=== PATIENT | female | born 1995 | race Caucasian/White ===

== ENCOUNTER 2019-06-09 12:40 | Emergency (ER) | payer BC ==
[2019-06-09] MEDS ORDERED: METOCLOPRAMIDE 10 MG/2mL INJ ONE (14:07)
[2019-06-09] MEDS ORDERED: DIPHENHYDRAMINE 50 MG/ML VIAL ONE (14:07)
[2019-06-09] MEDS ORDERED: KETOROLAC 30 MG/ML INJ ONE (14:07)
[2019-06-09] MEDS ORDERED: NA CHLORIDE 0.9% 1,000 ML ONE (14:08)
--- NOTE | 2019-06-09 14:34 | RAD REPORT ---
EXAM DESCRIPTION: CT - Head Brain Wo Cont - 06/09/2019 2:27 pm CLINICAL HISTORY: JON Headache, drowsiness COMPARISON: No comparisons TECHNIQUE: All CT scans are performed using dose optimization technique as appropriate and may inclu de automated exposure control or mA/KV adjustment according to patient size. FINDINGS: No intracranial hemorrhage, hydrocephalus or extra-axial fluid collection.No areas of brai n edema or evidence of midline shift. The paranasal sinuses and mastoids are clear. The calvarium is intact. IMPRESSION: No acute intracranial abnormality.
[2019-06-09 14:35] LABS: Urine Blood NEGATIVE (NEG); Urine Glucose NEGATIVE (NEG); Urine Protein NEGATIVE (NEG); Urine Specific Gravity 1.025 (1.005-1.030); Urine pH 5.5 (5.0-7.0)
--- NOTE | 2019-06-09 20:13 | EDPHYS ---
Physician Documentation [facility] Name: Kylah Ariza Age: 23 yrs Sex: Female : 1995 Arrival Date: 06/09/2019 Time: 12:45 Bed 5 Private MD: ED Physician Moisés Rosenbaum HPI: 06/09 14:50 This 23 yrs old Female presents to ER via Ambulatory with complaints of Flu Symptoms, pm1 Headache. 14:50 The patient complains of pain to the top of head, forehead, right eye, left eye, left pm1 side of the back of head, left occipital area, right side of the back of head and right occipital area. The patient describes the headache as aching. 14:50 Onset: The symptoms/episode began/occurred 3 day(s) ago. Associated signs and symptoms: pm1 Pertinent positives: nausea, Photophobia vomiting, Body aches, Pertinent negatives: neck stiffness, vision changes, vision loss. Severity of symptoms: in the emergency department the pain is actually worse. Headache History: Denies prior headaches. The symptoms are alleviated by nothing. the symptoms are aggravated by lights. The patient has not experienced similar symptoms in the past. Recent diagnosis of PCOS three weeks ago. Taking metformin. 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 - Social history:: Smoking status: Patient uses tobacco products, smokes one-half pack cigarettes per day. - Ebola Screening: : Patient denies travel to an Ebola-affected area in the 21 days before illness onset. ROS: 14:50 Eyes: Negative for injury, pain, redness, and discharge. pm1 14:50 ENT: Negative for injury, pain, and discharge, Neck: Negative for injury, pain, and swelling, Cardiovascular: Negative for chest pain, palpitations, and edema, Respiratory: Negative for shortness of breath, cough, wheezing, and pleuritic chest pain. 14:50 Back: Negative for injury and pain, : Negative for injury, bleeding, discharge, and swelling, MS/Extremity: Negative for injury and deformity, Skin: Negative for injury, rash, and discoloration. 14:50 Constitutional: Positive for body aches, fever, Negative for chills, poor PO intake. 14:50 Abdomen/GI: Positive for nausea and vomiting, Negative for abdominal pain, diarrhea, constipation. 14:50 Neuro: Positive for headache, Negative for numbness, weakness. Exam: 14:50 Constitutional: This is a well developed, well nourished patient who is awake, alert, pm1 and in no acute distress. Head/Face: Normocephalic, atraumatic. Eyes: Pupils equal round and reactive to light, extra-ocular motions intact. Lids and lashes normal. Conjunctiva and sclera are non-icteric and not injected. Cornea within normal limits. Periorbital areas with no swelling, redness, or edema. ENT: Nares patent. No nasal discharge, no septal abnormalities noted. Tympanic membranes are normal and external auditory canals are clear. Oropharynx with no redness, swelling, or masses, exudates, or evidence of obstruction, uvula midline. Mucous membranes moist. Neck: Trachea midline, no thyromegaly or masses palpated, and no cervical lymphadenopathy. Supple, full range of motion without nuchal rigidity, or vertebral point tenderness. No Meningismus. Chest/axilla: Normal chest wall appearance and motion. Nontender with no deformity. No lesions are appreciated. Cardiovascular: Regular rate and rhythm with a normal S1 and S2. No gallops, murmurs, or rubs. Normal PMI, no JVD. No pulse deficits. Respiratory: Lungs have equal breath sounds bilaterally, clear to auscultation and percussion. No rales, rhonchi or wheezes noted. No increased work of breathing, no retractions or nasal flaring. Abdomen/GI: Soft, non-tender, with normal bowel sounds. No distension or tympany. No guarding or rebound. No evidence of tenderness throughout. Back: No spinal tenderness. No costovertebral tenderness. Full range of motion. Skin: Warm, dry with normal turgor. Normal color with no rashes, no lesions, and no evidence of cellulitis. MS/ Extremity: Pulses equal, no cyanosis. Neurovascular intact. Full, normal range of motion. 14:50 Neuro: Orientation: is normal, Cranial nerves: CN II- XII are normal as tested, Motor: is normal, moves all fours, strength is normal, strength is 5/5 in all extremities, Sensation: is normal, no obvious gross deficits, Gait: is steady, at a normal pace, without difficulty. Vital Signs: 12:50 BP 116 / 83; Pulse 82; Resp 16; Temp 98.5; Pulse Ox 98% on R/A; Weight 66.68 kg (R); aj1 Height 5 ft. 1 in. (154.94 cm) (R); Pain 8/10; 12:50 Body Mass Index 27.78 (66.68 kg, 154.94 cm) aj1 MDM: 13:37 Patient medically screened. pm1 15:27 Data reviewed: vital signs. Data interpreted: Pulse oximetry: on room air is 98 %. pm1 Interpretation: normal. Counseling: I had a detailed discussion with the patient and/or guardian regarding: the historical points, exam findings, and any diagnostic results supporting the discharge/admit diagnosis, lab results, radiology results, the need for outpatient follow up, a family practitioner, a neurologist, to return to the emergency department if symptoms worsen or persist or if there are any questions or concerns that arise at home. 06/09 14:04 Order name: Urine Dipstick-Ancillary (obtain specimen); Complete Time: 14:09 pm1 06/09 14:04 Order name: Urine Test (obtain specimen); Complete Time: 14:06 pm1 Administered Medications: 14:13 Drug: TORadol 30 mg Route: IVP; Site: right antecubital; hb 15:13 Follow up: Response: No adverse reaction sv 14:13 Drug: Reglan 10 mg Route: IVP; Site: right antecubital; hb 15:13 Follow up: Response: No adverse reaction sv 14:13 Drug: Benadryl 12.5 mg Route: IVP; Site: right antecubital; hb 15:13 Follow up: Response: No adverse reaction sv 14:14 Drug: NS 0.9% 1000 ml Route: IV; Rate: 1000 ml; Site: right antecubital; hb 15:39 Follow up: Response: No adverse reaction; IV Status: Completed infusion; IV Intake: sv 900ml Disposition: 06/10 07:27 Co-signature as Attending Physician, Moisés Rosenbaum MD I agree with the assessment and kdr plan of care. Disposition: 06/09/19 15:29 Discharged to Home. Impression: Headache. - Condition is Stable. - Discharge Instructions: General Headache Without Cause. - Prescriptions for Fiorinal 50- 325-40 mg Oral Capsule - take 1 capsule by ORAL route every 4 hours As needed - not to exceed 6 capsules per day; 20 capsule. - Medication Reconciliation Form, Thank You Letter, Antibiotic Education, Prescription Opioid Use form. - Follow up: Emergency Department; When: As needed; Reason: Worsening of condition. Follow up: Private Physician; When: 2 - 3 days; Reason: Recheck today's complaints, Continuance of care, Re-evaluation by your physician. - Problem is new. - Symptoms have improved. Signatures: Yanira Lambert RN RN aj1 Gayatri Goode RN RN sv Moisés Rosenbaum MD MD [facility] Lucas Waters NP MANAGER TRANSIT pm1 Laura López RN RN Corrections: (The following items were deleted from the chart) 06/09 15:38 15:29 06/09/2019 15:29 Discharged to Home. Impression: Headache. Condition is Stable. sv Forms are Medication Reconciliation Form, Thank You Letter, Antibiotic Education, Prescription Opioid Use. Follow up: Emergency Department; When: As needed; Reason: Worsening of condition. Follow up: Private Physician; When: 2 - 3 days; Reason: Recheck today's complaints, Continuance of care, Re-evaluation by your physician. Problem is new. Symptoms have improved. pm1
--- NOTE | 2019-06-09 20:15 | ER ---
Nurse's Notes [facility] Name: Kylah Ariza Age: 23 yrs Sex: Female : 1995 Arrival Date: 06/09/2019 Time: 12:45 Bed 5 Private MD: Diagnosis: Headache Presentation: 06/09 12:47 Presenting complaint: Patient states: "I'm nauseous. I've thrown up a few times. I have aj1 a migraine from the top of my head to the back of my neck" Reports that she had a fever of 100.0 at home. States that she has had this headache since Thursday. Transition of care: patient was not received from another setting of care. Onset of symptoms was May 2019. Risk Assessment: Do you want to hurt yourself or someone else? Patient reports no desire to harm self or others. Initial Sepsis Screen: Does the patient meet any 2 criteria? No. Patient's initial sepsis screen is negative. Does the patient have a suspected source of infection? No. Patient's initial sepsis screen is negative. Care prior to arrival: None. 12:47 Method Of Arrival: Ambulatory [facility] 12:47 Acuity: NIDA 4 aj1 Triage Assessment: 12:50 Headache History: The patient has had previous headaches and this one is different than aj1 previous episodes. General: Appears in no apparent distress. uncomfortable, Behavior is calm, cooperative, appropriate for age. Pain: Complains of pain in top of head Pain radiates to neck Pain currently is 8 out of 10 on a pain scale. Quality of pain is described as throbbing, Pain began 4 days ago Also complains of nausea. Neuro: Level of Consciousness is awake, alert, obeys commands. Neuro: Gait is steady, Speech is normal, Facial symmetry appears normal. Cardiovascular: Patient's skin is warm and dry. Respiratory: Airway is patent Respiratory effort is even, unlabored, Respiratory pattern is regular, symmetrical. 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 - Social history:: Smoking status: Patient uses tobacco products, smokes one-half pack cigarettes per day. - Ebola Screening: : Patient denies travel to an Ebola-affected area in the 21 days before illness onset. Screenin:58 Abuse screen: Denies threats or abuse. Denies injuries from another. Nutritional sv screening: No deficits noted. Tuberculosis screening: No symptoms or risk factors identified. Fall Risk None identified. Assessment: 14:05 General: Appears in no apparent distress. uncomfortable, Behavior is calm, cooperative. hb Pain: Pain currently is 8 out of 10 on a pain scale. Neuro: Level of Consciousness is awake, alert, obeys commands, Oriented to person, place, time, situation, Reports headache. Cardiovascular: Capillary refill < 3 seconds Patient's skin is warm and dry. Respiratory: Airway is patent Respiratory effort is even, unlabored, Respiratory pattern is regular, symmetrical. GI: No signs and/or symptoms were reported involving the gastrointestinal system. : No signs and/or symptoms were reported regarding the genitourinary system. EENT: No signs and/or symptoms were reported regarding the EENT system. Derm: Skin is intact, is healthy with good turgor. Musculoskeletal: No signs and/or symptoms reported regarding the musculoskeletal system. 15:18 Reassessment: Patient appears in no apparent distress at this time. Patient and/or sv family updated on plan of care and expected duration. Pain level reassessed. Patient is alert, oriented x 3, equal unlabored respirations, skin warm/dry/pink. Patient states feeling better. Patient states symptoms have improved. 15:38 Reassessment: Patient appears in no apparent distress at this time. Patient and/or sv family updated on plan of care and expected duration. Pain level reassessed. Patient is alert, oriented x 3, equal unlabored respirations, skin warm/dry/pink. Patient states feeling better. Patient states symptoms have improved. Vital Signs: 12:50 BP 116 / 83; Pulse 82; Resp 16; Temp 98.5; Pulse Ox 98% on R/A; Weight 66.68 kg (R); aj1 Height 5 ft. 1 in. (154.94 cm) (R); Pain 8/10; 12:50 Body Mass Index 27.78 (66.68 kg, 154.94 cm) aj1 ED Course: 12:45 Patient arrived in ED. mr 12:50 Triage completed. aj1 13:34 Lucas Waters [facility]. pm1 13:34 Moisés Rosenbaum MD is Attending Physician. pm1 13:58 Gayatri Goode RN is Primary Nurse. sv 13:58 Flu and/or RSV swab sent to lab. sv 13:58 Arm band placed on. sv 13:59 Nurse Practitioner and/or Physician Cargo And Ramp Services Manager to see patient. sv 13:59 Patient has correct armband on for positive identification. Bed in low position. Adult sv w/ patient. Door closed. Head of bed elevated. 14:10 Inserted saline lock: 20 gauge in right antecubital area, using aseptic technique. sv Flushed right antecubital with 5 ml normal saline. 14:[address] Scan. sv 15:38 No provider procedures requiring assistance completed. IV discontinued, intact, sv bleeding controlled, No redness/swelling at site. Pressure dressing applied. Administered Medications: 14:13 Drug: TORadol 30 mg Route: IVP; Site: right antecubital; hb 15:13 Follow up: Response: No adverse reaction sv 14:13 Drug: Reglan 10 mg Route: IVP; Site: right antecubital; hb 15:13 Follow up: Response: No adverse reaction sv 14:13 Drug: Benadryl 12.5 mg Route: IVP; Site: right antecubital; hb 15:13 Follow up: Response: No adverse reaction sv 14:14 Drug: NS 0.9% 1000 ml Route: IV; Rate: 1000 ml; Site: right antecubital; hb 15:39 Follow up: Response: No adverse reaction; IV Status: Completed infusion; IV Intake: sv 900ml Intake: 15:39 IV: 900ml; Total: 900ml. sv Outcome: 15:29 Discharge ordered by . pm1 15:38 Discharged to home ambulatory, with family. sv 15:38 Condition: stable 15:38 Discharge instructions given to patient, Instructed on discharge instructions, follow up and referral plans. medication usage, Demonstrated understanding of instructions, follow-up care, medications, Prescriptions given X 1. 15:38 Patient left the ED. sv Signatures: Yanira Lambert RN RN aj1 Gayatri Goode RN RN sv Shira Henson mr Lucas Waters, WET PROCESS TECHNICIAN WET PROCESS TECHNICIAN pm1 López, Laura, RN RN hb Corrections: (The following items were deleted from the chart) 13:59 13:59 Door closed. Head of bed lowered. sv sv
== END 2019-06-09 15:38 | disposition home or self-care (01) ==
LOC: ER 12:40
DX: R51 Headache (principal)
CPT/HCPCS: 96361; 81025; 81003; 87804 ×2; 70450; 96375; 96374; 99284; J2765; J7030

== ENCOUNTER 2023-03-15 16:52 | Emergency (ER) | payer SELFPAY ==
--- OUTSIDE RECORDS SUMMARY | 2023-03-15 16:55 | XMS REPORT | Continuity of Care Document ---
:1995 Author Organization [facility] t Address [address] [place] [address] [address] [place] [address] Care Team Providers Name Role Phone ELISABETHDREADYFN Attending Clinician Unavailable MARY RIVERS Attending Clinician Unavailable G_Pappas Attending Clinician Unavailable ERJACLYNONAmy Attending Clinician Unavailable Kori_Sharon Attending Clinician Unavailable Toby Jordan Attending Clinician [phone] JAGDEEP ANAND Attending Clinician Unavailable Yesica Preciado DO Attending Clinician YESICA PRECIADO Attending Clinician Unavailable Doctor Unassigned, [place] Attending Clinician Unavailable Yusef Pierre MD Attending Clinician 1, [facility] Attending Clinician Unavailable FRANCY SELF Attending Clinician Unavailable KEV LONDONO Attending Clinician Unavailable JOSH VARGAS Attending Clinician Unavailable G_Pappas Admitting Clinician Unavailable ERICKSONAmy Admitting Clinician Unavailable Kori_Sharon Admitting Clinician Unavailable JAGDEEP ANAND Admitting Clinician Unavailable Payers Payer Name Policy Type Policy Number Effective Date Expiration Date Paige AGEE (EPO) [id number] 2021 00:00:00 [place] [id number] 2020 00:00:00 [place] [id number] 2016 00:00:00 [place] Problems Condition Condition Condition Status Onset Resolution Last Treating Co mments Source Name Details Category Date Date Treatment Clinician Date History of History of Problem Active S weeny SARS-CoV-2 SARS-CoV-2 06-21 Co mmuni 00:00: ty 00 [facility] Polycystic Polycystic Problem Active S weeny ovary Ovary 06-20 Communi syndrome Syndrome 00:00: ty 00 [facility] Amenorrhea Amenorrhea Problem Active M atagor 5-29 da 00:00: Medical 00 Group Polycystic Polycystic Problem Active M [facility] ovary Ovary 03-09 da syndrome Syndrome 00:00: Medica l 00 Group Female Female Disease Active Overview: [facility] s infertilit infertilit -05/30/19 - ity of y y 00:00: FSH 5.95, [place] associated associated 00 LH 13.3, Medical with with DHEA-S Branch anovulatio anovulatio 2,564, n n prolactin 7.2, TSH 3.27, free testoster one 10, 17 hydroxypr ogesteron e normal, AMH - 27.155 PCOS PCOS Disease Active Overview: [facility] s (polycysti (polycysti -06/01/19 - ity of c ovarian c ovarian 00:00: A pelvic [place] syndrome) syndrome) 00 US Medi marlo revealed Branch a uterus measuring 7.7 x 4.3 x 5.4 cm. The endometri al stripe was 5 mm.The right ovary measured 6.0 x 3.2 x 3.1 cm and the left ovary measures 5.4x 2.8 x 2.8 cm. Both ovaries have a volume of more than 10 cc with each containin g numerous subcentim eter follicles . Bilateral ly enlarged ovaries with numerous follicles raise the possibili ty of polycysti c ovarian syndrome. 8/19/19 - 17 hydroxypr ogesteron e normal. Absence of Absence of Disease Active U nivers menstruati menstruati 05-27 it y of on on 00:00: [address] PCOS PCOS Disease Active Overview: Univer s (polycysti (polycysti 05-2706/01/19 - ity of c ovarian c ovarian 00:00: A pelvic [place] syndrome) syndrome) 00 US Medi marlo revealed Branch a uterus measuring 7.7 x 4.3 x 5.4 cm. The endometri al stripe was 5 mm.The right ovary measured 6.0 x 3.2 x 3.1 cm and the left ovary measures 5.4x 2.8 x 2.8 cm. Both ovaries have a volume of more than 10 cc with each containin g numerous subcentim eter follicles . Bilateral ly enlarged ovaries with numerous follicles raise the possibili ty of polycysti c ovarian syndrome. 05/30/19 hydroxypr ogesteron e normal. 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 00:00: Medical 00 Group Bacterial Bacterial Problem Active [facility] vaginosis Vaginosis da Medical Group Acute Acute Problem Active [place] cystitis Cystitis da Medical Group Oligomenor Oligomenor Problem Active M at[facility] abdirahman abdirahman [facility] Allergies, Adverse Reactions, Alerts Allergy Allergy Status Severity Reaction(s) Onset Inactive Treating Comm ents Source Name Type Date Date Clinician NO KNOWN Drug Active Univers ALLERGIE Class ity of [facility] [place] [facility] Social History Social Habit Start Date Stop Date Quantity Comments Source History of Cigarette Smoker Universi ty of tobacco use [facility] Sex Assigned At Universit y of [facility] Alcohol intake 2019-11-10 2019-11-10 University of 00:00:00 00:00:00 [facility] Smoking Status Start Date Stop Date Source Former Smoker [facility] Current every day smoker 2019-11-10 00:00:00 Uni versity of [facility] Medications Ordered Filled Start Stop Current Ordering Indication Dosage Frequency Signature Comments Components Source Medication Medication Date Date Medication? Clinician (SIG) Name Name HYDROcodone 2020- No 1{tbl} 1 tablet, Univers -acetaminop 11-10 Oral, ity of hen (NORCO 22:45: 21:47 ONCE, 1 Benja as 5) 5-325 mg 00 :00 dose, Bekah Med ical tablet 1 11/10/19 at [facility] h tablet 1645, TRUDI metFORMIN Yes [id number] 500mg Take 1 Univers 500 mg 8-20 tablet by ity of tablet 00:00: mouth 2 [place] [facility] Medical times Branch daily with meals. metFORMIN Yes [id number] 500mg Take 1 Univers 500 mg 8-20 tablet by ity of tablet 00:00: mouth 2 [place] [facility] Medical times Branch daily with meals. metFORMIN Yes [id number] 500mg Take 1 Univers 500 mg 8-20 tablet by ity of tablet 00:00: mouth 2 [place] [facility] Medical times Branch daily with meals. metFORMIN Yes [id number] 500mg Take 1 Univers 500 mg 8-20 tablet by ity of tablet 00:00: mouth 2 [place] [facility] Medical times Branch daily with meals. metFORMIN Yes [id number] 500mg Take 1 Univers 500 mg 8-20 tablet by ity of tablet 00:00: mouth 2 [place] [facility] Medical times Branch daily with meals. medroxyPROG 2019- No [id number] 10mg Take 1 Univers ESTERone 8-20 - tablet by ity o f (PROVERA) 00:00: 04:59 mouth [place] 10 mg 00 :00 daily for Medical tablet 10 days. Branch On days 1-10 each month. medroxyPROG 2019- No [id number] 10mg Take 1 Univers ESTERone 8-20 - tablet by ity o f (PROVERA) 00:00: 04:59 mouth [place] 10 mg 00 :00 daily for Medical tablet 10 days. Branch On days 1-10 each month. medroxyPROG 2019- No [id number] 10mg Take 1 Univers ESTERone 8-20 - tablet by ity o f (PROVERA) 00:00: 04:59 mouth [place] 10 mg 00 :00 daily for Medical tablet 10 days. Branch On days 1-10 each month. etonogestre etonogestre No etonogestr [place] l 0.12 l 0.12 el 0.12 da mg-ethinyl mg-ethinyl mg-ethinyl Medical estradiol estradiol estradiol Group 0.015 mg/24 0.015 mg/24 0.015 hr vaginal hr vaginal mg/24 hr ring INSERT ring INSERT vaginal 1 RING 1 RING ring VAGINALLY VAGINALLY INSERT 1 EVERY MONTH EVERY MONTH RING VAGINALLY EVERY MONTH One-A-Day One-A-Day No One-A-Day [facility] Womens Womens Womens da Formula 18 Formula 18 Formula 18 Medical mg iron-400 mg iron-400 mg G roup mcg-500 mg mcg-500 mg iron-400 Ca tablet Ca tablet mcg-500 mg Take by Take by Ca tablet oral route. oral route. Take by oral route. No known No Univers medications [facility] No known No Univers medications [facility] No known No Univers medications [facility] No known No Univers medications [facility] No known No Univers medications [facility] No known No Univers medications [facility] clomiphene clomiphene No clomiphene [place] citrate 50 citrate 50 citrate 50 Communi mg tablet mg tablet mg tablet ty Take Clomid Take Clomid Take H ospita days 5-9 days 5-9 Clomid l days 5-9 Clinics Provera 10 Provera 10 No Provera 10 [place] mg tablet mg tablet mg tablet Communi Take tablet Take tablet Take t y 1-10 1-10 tablet Hospita 1-10 l Clinics Vital Signs Vital Name Observation Time Observation Value Comments Source Height 2022-04-11 00:00:00 62 [in_i] [facility] BMI (Body Mass 2022-04-11 00:00:00 26.1 kg/m2 [facility] Medical Index) Group BP Systolic 2022-04-11 00:00:00 119 mm[Hg] [facility] Body Weight 2022-04-11 00:00:00 142.7 [lb_av] [facility] BP Diastolic 2022-04-11 00:00:00 78 mm[Hg] [facility] BP Diastolic 2021-12-09 00:00:00 81 mm[Hg] [facility] Height 2021-12-09 00:00:00 62 [in_i] [facility] BMI (Body Mass 2021-12-09 00:00:00 26.8 kg/m2 [facility] Medical Index) Group BP Systolic 2021-12-09 00:00:00 114 mm[Hg] [facility] Body Weight 2021-12-09 00:00:00 146.6 [lb_av] [facility] BP Diastolic 2021-07-17 00:00:00 89 mm[Hg] [facility] Height 2021-07-17 00:00:00 62 [in_i] [facility] BMI (Body Mass 2021-07-17 00:00:00 27.7 kg/m2 [facility] Medical Index) Group BP Systolic 2021-07-17 00:00:00 113 mm[Hg] [facility] Body Weight 2021-07-17 00:00:00 151.4 [lb_av] [facility] BP Diastolic 2021-07-01 00:00:00 68 mm[Hg] [facility] s Height 2021-07-01 00:00:00 62 [in_i] [facility] s BMI (Body Mass 2021-07-01 00:00:00 27.4 kg/m2 [employer] s BP Systolic 2021-07-01 00:00:00 98 mm[Hg] [facility] s Body Weight 2021-07-01 00:00:00 2400 [oz_av] [facility] s BP Diastolic 2021-04-09 00:00:00 68 mm[Hg] [facility] Height 2021-04-09 00:00:00 62 [in_i] [facility] BMI (Body Mass 2021-04-09 00:00:00 28.9 kg/m2 [facility] Medical Index) Group BP Systolic 2021-04-09 00:00:00 106 mm[Hg] [facility] Body Weight 2021-04-09 00:00:00 158 [lb_av] [facility] BP Diastolic 2020-03-09 00:00:00 85 mm[Hg] [facility] Height 2020-03-09 00:00:00 61 [in_i] [facility] BMI (Body Mass 2020-03-09 00:00:00 28.3 kg/m2 [facility] Medical Index) Group BP Systolic 2020-03-09 00:00:00 127 mm[Hg] [facility] Body Weight 2020-03-09 00:00:00 150 [lb_av] [facility] Systolic blood 2019-11-10 21:23:25 120 mm[Hg] Univer [facility] of [facility] Diastolic blood 2019-11-10 21:23:25 85 mm[Hg] Unive rsity of [facility] Heart rate 2019-11-10 21:23:25 81 /min [facility] Body temperature 2019-11-10 21:23:25 37.06 Kelli [facility] Respiratory rate 2019-11-10 21:23:25 18 /min [facility] Body weight 2019-11-10 20:59:00 63.504 kg [facility] BMI 2019-11-10 20:59:00 26.45 kg/m2 [facility] Oxygen saturation in 2019-11-10 20:59:00 99 /min [facility] Arterial blood by [facility] Pulse oximetry Branch Systolic blood 2019-05-27 21:30:00 126 mm[Hg] Univer sity of [facility] Diastolic blood 2019-05-27 21:30:00 79 mm[Hg] Unive rsity of [facility] Heart rate 2019-05-27 21:30:00 84 /min [facility] Body temperature 2019-05-27 21:30:00 36.89 Kelli [facility] Respiratory rate 2019-05-27 21:30:00 20 /min [facility] Body height 2019-05-27 21:30:00 154.9 cm [facility] Body weight 2019-05-27 21:30:00 66.86 kg [facility] BMI 2019-05-27 21:30:00 27.85 kg/m2 [facility] BP Diastolic 2019-04-19 00:00:00 77 mm[Hg] [facility] Height 2019-04-19 00:00:00 61 [in_i] [facility] BMI (Body Mass 2019-04-19 00:00:00 27 kg/m2 [facility] Medical Index) Group BP Systolic 2019-04-19 00:00:00 130 mm[Hg] [facility] Body Weight 2019-04-19 00:00:00 142.9 [lb_av] [facility] BP Diastolic 2019-01-06 00:00:00 65 mm[Hg] [facility] Height 2019-01-06 00:00:00 61 [in_i] [facility] BMI (Body Mass 2019-01-06 00:00:00 24.5 kg/m2 [facility] Medical Index) Group BP Systolic 2019-01-06 00:00:00 108 mm[Hg] [facility] Body Weight 2019-01-06 00:00:00 129.6 [lb_av] [facility] Procedures Procedure Date / Time Performing Clinician Source Performed US, transvaginal 2021-08-21 00:00:00 Chela Herrera edical Group POCT TEST 2019-11-10 21:09:00 Kassandra Verduzco [facility] NOTICE OF PRIVACY 2019-11-10 20:49:09 Doctor Unassigned, No [facility] PRACTICES Name [facility] CONSENT/REFUSAL FOR 2019-11-10 20:46:09 Doctor Unassigned, No [facility] DIAGNOSIS AND TREATMENT Name [facility] US PELVIS COMPLETE 2019-06-02 00:04:15 Yusef Pierre [facility] NON-OB [facility] POCT TEST 2019-05-27 00:00:00 Yusef Pierre [facility] Plan of Care Planned Activity Planned Date Details Comments Source Diagnostic Test 2022-04-11 CBC w/ auto diff [facility] Pending 00:00:00 [code = CBC w/ auto Group diff] Diagnostic Test 2022-04-11 CMP, serum or plasma Prather luisito Medical Pending 00:00:00 [code = CMP, serum or Group plasma] Diagnostic Test 2022-04-11 HBsAg (hepatitis B [facility] Pending 00:00:00 surface Ag), serum Group [code = HBsAg (hepatitis B surface Ag), serum] Diagnostic Test 2022-04-11 HIV (1+2) Ab screen, Prather luisito Medical Pending 00:00:00 serum [code = HIV Group (1+2) Ab screen, serum] Diagnostic Test 2022-04-11 RPR (rapid plasma [facility] Pending 00:00:00 reagin), serum [code Group = RPR (rapid plasma reagin), serum] Diagnostic Test 2022-04-11 pap, LB + CT/NG/TV + Prather luisito Medical Pending 00:00:00 reflex HR HPV [code = Group pap, LB + CT/NG/TV + reflex HR HPV] Diagnostic Test 2022-04-11 urinalysis, dipstick Prather luisito Medical Pending 00:00:00 [code = urinalysis, Group dipstick] Diagnostic Test 2022-04-11 TSH, serum, reflex [facility] Pending 00:00:00 free T4 [code = TSH, Group serum, reflex free T4] Diagnostic Test 2021-07-01 rapid SARS CoV 2 Ag, [facility] Pending 00:00:00 QL IA, respiratory Hospital Clinics specimen [code = rapid SARS CoV 2 Ag, QL [place], respiratory specimen] Encounters Start End Encounter Admission Attending Care Care Encounter Source Date/Time Date/Time Type Type Clinicians Facility Department ID 2023-01-29 2023-01-30 Emergency ER CATANESCU, [facility] [id number] [facility] 20:49:00 00:40:00 YFN [id number] [facility] 2023-01-29 2023-01-30 emergency [id number] 20:49:00 00:40:00 [id number] 2022-04-11 2022-04-11 Outpatient AGUSTINA RIVERS [facility] [id number] [place] 09:18:00 09:18:00 MARY -[id number] [facility] 2022-04-11 2022-04-11 Mary G_Pappas [place] - [id number] [place] 00:00:00 00:00:00 Discovery Kori 0701 zan [facility]: [address] [address] , Ph. [phone] 2022-04-10 2022-04-10 Outpatient G_Pappas MMG MM [id number] [place] 11:28:00 11:28:00 0630 [facility] 2022-03-11 2022-03-11 Outpatient G_Pappas MMG MMG [id number] [place] 10:23:00 10:23:00 0531 [facility] 2022-02-26 2022-02-26 Outpatient ERICKSON_R [facility] 1107 [place] 03:56:00 03:56:00 0518 [facility] 2021-12-09 2021-12-09 Jagdeep G_[place]app[place] - [id number] [place] 00:00:00 00:00:00 Discovery Angus 227 zan MD: [address] [place] [address] , Ph. [phone] 2021-12-04 2021-12-04 Outpatient Kori_Sharon MMG MMG [id number] [place] 08:08:00 08:08:00 022 [facility] 2021-08-212021-08-21 Mary White_M [place] - [id number] [place] 00:00:00 00:00:00 Discovery Kori 1110 [facility]: [address] [address] , Ph. [phone] 2021-08-09 2021-08-09 Outpatient ERICKSON_R [facility] 1107 [place] 07:53:00 07:53:00 1029 [facility] i [facility] 2021-07-17 2021-07-17 [place] White_[place] - [id number] [place] 00:00:00 00:00:00 Discovery Kori 1006 da [facility]: [address] [address] , Ph. [phone] 2021-07-16 2021-07-16 Outpatient ERICKSON_R [facility] 1107 [place] 08:29:00 08:29:00 1005 [facility] 2021-07-04 2021-07-04 Outpatient White_M [facility] [id number] [place] 11:04:00 11:04:00 0923 [facility] 2021-07-01 2021-07-01 Outpatient ERICKSON_R [facility] 1107 [place] 10:13:00 10:13:00 0920 Commun i ty [facility]osp[facility] Clinics 2021-07-01 2021-07-01 Toby [facility] - [place] 00:00:00 00:00:00 [facility] DO: [address] a [facility] [address], HOSPITAL Clinic s [place], [place] CL[place], [address] JULIAN , Ph. 2021-07-01 2021-07-01 Outpatient Julian [facility] [id number] 00:00:00 00:00:00 Toby [id number] Roger [id number] 2021-06-20 2021-06-20 Outpatient ERICKSON_R [facility] [id number] [place] 10:40:00 10:40:00 0909 Commun i ty Hospita [facility] Clinics 2021-06-20 2021-06-20 Outpatient ERICKSON_R [facility] [id number] [place] 06:57:00 06:57:00 0909 Commun i ty Hospita l Clinics 2021-06-20 2021-06-20 Toby [facility] [place] - [place] 00:00:00 00:00:00 [facility] - DO: [address] [facility] [address] HOSP[facility] Clinic s [place], [place], [address] JULIAN , Ph. 2021-04-09 2021-04-09 Outpatient AGUSTINA RIVERS [facility] [id number] [place] 10:13:00 10:13:00 MARY -[id number] [facility] 2021-04-09 2021-04-09 [place] Sim[place] - [id number] [place] 00:00:00 00:00:00 Discovery Kori 628 da [facility]: [address] [facility] [address] [address] , Ph. [phone] 2021-02-05 2021-02-05 Outpatient G_Pappas MMG MM [id number] [place] 10:34:00 10:34:00 0427 [facility] 2020-08-29 2020-08-29 Outpatient G_Pappas MMG MMG [id number] [place] 02:18:00 02:18:00 1118 [facility] 2020-06-14 2020-06-14 Outpatient G_Pappas MMG MMG [id number] [place] 04:54:00 04:54:00 0903 [facility] 2020-03-29 2020-03-29 Outpatient G_Pappas MMG MMG [id number] [place] 05:11:00 05:11:00 0618 [facility] 2020-03-11 2020-03-11 Outpatient G_Pappas MMG MMG [id number] [place] 08:13:00 08:13:00 0531 [facility] Medical Group 2020-03-09 2020-03-09 Outpatient EL ANGUS, [facility] [id number] [place] 15:49:00 15:49:00 JAGDEEP [id number] zan [facility] 2020-03-09 2020-03-09 Jagdeep G_[place] - [id number] [place] 00:00:00 00:00:00 Discovery Angus 29 zan MD: [address] [facility] [address], [place] [address] , Ph. [phone] 2019-11-10 2019-11-10 Emergency [facility] [id number] Univers 15:21:07 15:49:00 Yesica Major [id number] ity [id number] [id number] [facility] 084 Branch 2019-11-10 2019-11-10 Emergency X [facility] ERT [id number] Univers 15:21:07 15:49:00 YESICA arnold of [facility] 2019-11-10 2019-11-10 Orders Doctor GUERITA [id number] Univers 00:00:00 00:00:00 Only Unassigned, BIANCA [id number] ity of [place] [facility] [id number] Benja as [phone] [facility] 009 Branch 2019-06-06 2019-06-06 Patient Doctor [facility] [id number] Univers 00:00:00 00:00:00 Secure Msg Unassigned, Moriah [id number] ity [id number] [facility] [phone] [place] [address] Branch [facility] 2019-06-01 2019-06-01 Hospital [facility] [id number] [facility] 18:32:48 23:59:00 Encounter Yusef Major [id number] [id number] [phone] [facility] 806 [place] 2019-05-27 2019-05-31 Office [facility] [id number] [facility] 16:17:49 18:01:19 Visit Yusef Major [id number] i [id number] [phone] [facility] 134 [facility] 2019-05-30 2019-05-30 Security Tester 1, Adc Lab [facility] [id number] [facility] 13:42:34 13:57:34 Visit LucamayteYusef 350.1.13. 10 ity [id number] [id number] [facility] 353 [place] 2019-05-27 2019-05-27 [facility] [id number] Univers 00:00:00 00:00:00 Yusef Major [id number] i [id number] [phone] [address] 2019-05-27 2019-05-27 Telephone [facility] [id number] Univers 00:00:00 00:00:00 Yusef Major [id number] i ty [id number] [phone] [facility] nal [address] [place] [address] 2019-04-26 2019-04-26 [place] [id number] [place] 11:22:00 11:22:00 0716 Medical Group 2019-04-19 2019-04-19 Outpatient EL ANGUS, [facility] [id number] [place] 11:16:00 11:16:00 JAGDEEP [id number] [facility] 2019-04-19 2019-04-19 Jagdeep [facility] [place] - [id number] [place] 00:00:00 00:00:00 Discovery Angus 0709 zan MD: [address] [address] , Ph. [phone] 2019-01-06 2019-01-06 Outpatient EL ROHAN, [facility] [id number] [place] 16:39:00 16:39:00 FRANCY [id number] [facility] 2019-01-06 2019-01-06 Francy [place] [facility] [place] [place] - [id number] [place] 00:00:00 00:00:00 Discovery Rohan 0328 da WHNP: [address] [address] , Ph. [phone] 2018-08-02 2018-08-02 Outpatient EL ANGUS, [facility] [id number] [place] 16:17:00 16:17:00 JAGDEEP [id number] [facility] 2018-01-05 2018-01-05 Outpatient EL ROHAN, [facility] [id number] [place] 10:13:00 10:13:00 FRANCY [id number] [facility] 2016-08-22 2016-08-23 Inpatient EL ANGUS, [facility] [id number] [place] 04:48:00 12:55:00 JAGDEEP [id number] [facility] 2016-07-17 2016-07-17 Outpatient EL ANGUS, [facility] [id number] [place] 10:56:00 10:56:00 JAGDEEP [id number] [facility] 2016-06-05 2016-06-05 Outpatient EL ANGUS, [facility] [id number] [place] 08:54:00 08:54:00 JAGDEEP [id number] [facility] 2016-03-18 2016-03-18 Outpatient EL ANGUS, [facility] [id number] [place] 09:02:00 09:02:00 JAGDEEP [id number] [facility] 2016-01-24 2016-01-24 Outpatient EL ANGUS, [facility] [id number] [place] 10:52:00 10:52:00 JAGDEEP [id number] [facility] 2015-10-25 2015-10-25 Outpatient EL ANGUS, [facility] [id number] [place] 11:08:00 11:08:00 JAGDEEP [id number] [facility] [facility] 2015-09-13 2015-09-13 Outpatient EL ANGUS, [facility] [id number] [place] 09:52:00 09:52:00 JAGDEEP [id number] [facility] 2002-09-27 2002-09-27 Emergency ER SPR[place], [facility] [id number] [place] 16:51:00 20:35:00 KEV [id number] [facility] 1999-12-04 1999-12-04 Emergency ER ALICIA, [facility] [id number] [place] 08:29:00 11:10:00 JOSH [id number] [facility] Results Test Description Test Time Test Comments Results Result Comments Source Urinalysis macro (dipstick) panel - Urine 2022-04-11 08:49:0 0 Test Item Value Reference Range Interpretation Comme nts Leukocytes (test code = Leukocytes) Negative Nitrite (test code = Nitrite) negative Urobilinogen (test code = Urobilinogen) .2 Protein (test code = Protein) Negative pH (test code = pH) 5.5 Blood (test code = Blood) Negative Specific [place] (test code = Specific [place]) 1.025 Ketone (test code = Ketone) Negative Bilirubin (test code = Bilirubin) Negative Glucose (test code = Glucose) Negative Appearance (test code = Appearance) Clear Color (test code = Color) Yellow [facility], [id number] 14:17:59 Test Item Value Reference Range Interpretation Comments Test (test code = negative Test) [facility] Ag [Presence] in Respiratory specimen by Rapid [id number] 15:04:00 Test Item Value Reference Range Interpretation Comments SARS CoV 2 (test code = SARS CoV 2) positive [facility]ics[facility] test, [id number] 09:24:00 Test Item Value Reference Range Interpretation Comments Test (test code = negative Test) [facility] [id number] 00:00:00 Test Item Value Reference Range Interpretation Comments [facility] blood collection sent to [facility] (test code = [facility] blood collection) [facility] - [id number] 14:34:27 Test Item Value Reference Range Interpretation Comments Leukocytes (test code = Leukocytes) Negative Nitrite (test code = Nitrite) negative Urobilinogen (test code = 1 Urobilinogen) Protein (test code = Protein) Negative pH (test code = pH) 7.0 Blood (test code = Blood) Negative Specific [place] (test code = 1.025 Specific [place]) Ketone (test code = Ketone) Negative Bilirubin (test code = Bilirubin) Negative Glucose (test code = Glucose) Negative Appearance (test code = Appearance) Clear Color (test code = Color) Yellow [facility] [id number] 21:09:00 Test Item Value Reference Range Interpretation Comments POCT PREG (test code = 1605) negative On board controls acceptable with present C Line (test code = 3574) POCT PREG LOT # (test code = 3575) [id number] POCT PREG TEST DATE (test 2021-05-11 code = 3576) Lab Interpretation (test code = Normal 36700-5) [facility] PELVIS COMPLETE [id number] 04:44:07 Bilaterally enlarged ovaries with numerous follicles raise the possibilityof polycystic ovarian syndrome. IPer MD., have reviewed this study and agree with the abovereport.* * * * * * * * ORIGINAL REPORT * * * * * * * *TRANSABDOMINAL AND TRANSVAGINAL PELVIC ULTRASOUND HISTORY:?aub, PCOS COMP ARISON:?None FINDINGS: The uterus is normal in size and echotexture and exhibits no masses orfocal defects. It measures 7.7 x 4.3 x 5.4 cm. The endometrial stripemeasures a normal 5 mm. Several nabothian cysts are noted. The right ovary measures 6.0 x 3.2 x 3.1 cm and the left ovary measures 5.4x 2.8 x 2.8 cm. Both ovaries have a volume of more than 10 cc with eachcontaining numerous subcentimeter follicles. The urinary bladder is unremarkable.? No fluid is present in the cul-de-sac.? [facility], Radiant Results Inft User - 06/01/2019 11:46 PM CDT* * * * * * * * ORIGINAL REPORT * * * * * * * *TRANSABDOMINAL AND TRANSVAGINAL PELVIC ULTRASOUNDHISTORY: aub, PCOS COMPARISON: NoneFINDINGS: The uterus is normal in size and echotexture and exhibits no masses orfocal defects. It measures 7.7 x 4.3 x 5.4 cm. The endometrial stripemeasures a normal 5 mm. Several nabothian cysts are noted. The right ovary measures 6.0 x 3.2 x 3.1 cm and the left ovary measures 5.4x 2.8 x 2.8 cm. Both ovaries have a volume of mor e than 10 cc with eachcontaining numerous subcentimeter follicles. The urinary bladder is unremarkable. No fluid is present in the cul-de-sac. IMPRESSION Bilaterally enlarged ovaries with numerous follicles raise the possibilityof polycystic ovarian syndrome.I, Alexandra Hawley MD., have reviewed this study and agree with the abovereport.[facility] TEST 2019-05-27 22:09:00 Test Item Value Reference Range Interpretation Comments POCT PREG (test code = 1605) Negative On board controls acceptable with C Yes Line (test code = 3574) POCT PREG LOT # (test code = 3575) POCT PREG TEST DATE (test code = 3576) Lab Interpretation (test code = Normal 60421-7) [facility] [id number] 22:09:00 Test Item Value Reference Range Interpretation Comments POCT PREG (test code = 1605) Negative On board controls acceptable with C Yes Line (test code = 3574) POCT PREG LOT # (test code = 3575) POCT PREG TEST DATE (test code = 3576) Lab Interpretation (test code = Normal 04251-4) [facility] [id number] 22:09:00 Test Item Value Reference Range Interpretation Comments POCT PREG (test code = 1605) Negative On board controls acceptable with C Yes Line (test code = 3574) POCT PREG LOT # (test code = 3575) POCT PREG TEST DATE (test code = 3576) Lab Interpretation (test code = Normal 46195-8) [facility] [id number] 11:02:26 Test Item Value Reference Range Interpretation Comments Test (test code = negative Test) [facility]
[2023-03-15 17:57] LABS: Specific Gravity 1.023 (1.005-1.030); Urine Bacteria None Seen /HPF (<20); Urine Bilirubin NEGATIVE (Negative); Urine Blood Negative (Negative); Urine Clarity Turbid (Clear); Urine Color Yellow (Yellow); Urine Glucose NEGATIVE (Negative); Urine Mucus 1+ /HPF (None Seen); Urine Protein TRACE (Negative); Urine RBC <5 /HPF (None Seen); Urine Urobilinogen Normal (Normal); Urine pH 6.5 (5.0-7.0)
--- NOTE | 2023-03-15 18:03 | ER ---
Nurse's Notes [facility] Name: Kylah France Age: 27 yrs Sex: Female : 1995 Arrival Date: 03/15/2023 Time: 16:52 Bed 19 Private MD: Diagnosis: Encounter for screening, unspecified Presentation: 03/15 17:13 Chief complaint: Patient states: LMP 01 of February, states has hx of PCOS and is wanting vg1 to get blood work done, is not able to get into OB until a month in a half. Denies bleeding or ABD cramping/pain. Took test at home, results negative. Coronavirus screen: Vaccine status: Patient reports being unvaccinated. Client denies travel out of the [place] in the last 14 days. Ebola Screen: Patient negative for fever greater than or equal to 101.5 degrees Fahrenheit, and additional compatible Ebola Virus Disease symptoms Patient denies exposure to infectious person. Patient denies travel to an Ebola-affected area in the 21 days before illness onset. Initial Sepsis Screen: Does the patient meet any 2 criteria? No. Patient's initial sepsis screen is negative. Does the patient have a suspected source of infection? No. Patient's initial sepsis screen is negative. Risk Assessment: Do you want to hurt yourself or someone else? Patient reports no desire to harm self or others. Onset of symptoms was March 15, 2023. 17:13 Method Of Arrival: Ambulatory vg1 17:13 Acuity: NIDA 3 vg1 Triage Assessment: 17:15 General: Appears comfortable, Behavior is cooperative. Pain: Denies pain. 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 - Social history:: Smoking status: Reported history of juuling and/or vaping. Screenin:22 [facility] ED Fall Risk Assessment (Adult) History of falling in the last 3 months, kc6 including since admission No falls in past 3 months (0 pts) Confusion or Disorientation No (0 pts) Intoxicated or Sedated No (0 pts) Impaired Gait No (0 pts) Mobility Assist Device Used No (0 pt) Altered Elimination No (0 pt) Score/Fall Risk Level 0 - 2 = Low Risk Oriented to surroundings, Maintained a safe environment, Educated pt \\T\\ family on fall prevention, incl call for assistance when getting out of bed, Assessed \\T\\ reinforced patient's understanding of fall precautions, Hourly rounding (assess needs \\T\\ fall precautionary measures) done. Abuse screen: Denies threats or abuse. Denies injuries from another. Nutritional screening: No deficits noted. Tuberculosis screening: No symptoms or risk factors identified. Assessment: 17:21 General: Appears in no apparent distress. comfortable, Behavior is calm, cooperative, kc6 appropriate for age. Pain: Denies pain. Neuro: Schaffer Agitation-Sedation Scale (RASS): 0 - Alert and Calm Level of Consciousness is awake, alert, obeys commands, Oriented to person, place, time, situation, Appropriate for age. Cardiovascular: Capillary refill < 3 seconds. Respiratory: Airway is patent Trachea midline Respiratory effort is even, unlabored, Respiratory pattern is regular, symmetrical. GI: No signs and/or symptoms were reported involving the gastrointestinal system. : No signs and/or symptoms were reported regarding the genitourinary system. EENT: No signs and/or symptoms were reported regarding the EENT system. Derm: No signs and/or symptoms reported regarding the dermatologic system. Skin is intact, Skin is pink, warm \\T\\ dry. Musculoskeletal: No signs and/or symptoms reported regarding the musculoskeletal system. Circulation, motion, and sensation intact. Capillary refill < 3 seconds, Range of motion: intact in all extremities. 18:21 Reassessment: Patient appears in no apparent distress at this time. No changes from kc previously documented assessment. Patient and/or family updated on plan of care and expected duration. Pain level reassessed. Patient is alert, oriented x 3, equal unlabored respirations, skin warm/dry/pink. 18:28 Reassessment: states, "aren't y'all going to check her HCG levels?" requests to [facility] campus medical center speak with a provider again prior to d/c. LEONEL Stratton notified. d/c pending at this time. Vital Signs: 17:13 BP 122 / 86; Pulse 73; Resp 16; Temp 98.1(TE); Pulse Ox 100% on R/A; Weight 63.5 kg; vg1 Height 5 ft. 1 in. ; Pain 0/10; 18:28 BP 111 / 82; Pulse 67; Resp 17 S; Pulse Ox 99% on R/A; kc6 17:13 Body Mass Index 26.45 (63.50 kg, 154.94 cm) vg1 17:13 Pain Scale: Adult vg1 ED Course: 16:54 Patient arrived in ED. mr 16:55 Chayito Cobb FNP-C [facility]. snw 16:55 Reagan Corrales MD is Attending Physician. snw 17:15 Triage completed. vg1 17:15 Arm band placed on. vg1 17:19 Danielle Iglesias, RN is Primary Nurse. kc6 17:22 Patient has correct armband on for positive identification. Bed in low position. Call kc6 light in reach. Side rails up X 1. Adult w/ patient. 17:43 Urinalysis W/Microscopic Sent. kc6 18:54 No provider procedures requiring assistance completed. Patient did not have IV access kc6 during this emergency room visit. Administered Medications: No medications were administered Medication: 18:55 VIS not applicable for this client. kc6 Outcome: 18:02 Discharge ordered by . snw 18:54 Discharged to home ambulatory, with significant other. kc6 18:54 Condition: unchanged 18:54 Discharge instructions given to patient, Instructed on discharge instructions, follow up and referral plans. Demonstrated understanding of instructions, follow-up care. 18:55 Patient left the ED. kc6 Signatures: Chayito Cobb FNP-C COSTUME DESIGNER-Csnw Shira HensonSusan, RN RN vg1 Danielle Iglesias, RN RN kc6 Corrections: (The following items were deleted from the chart) 17:16 17:15 Home Meds: Metformin Oral; vg1 vg1 17:24 17:13 Chief complaint: Patient states: LMP 01 of February, states has hx of PCOS and is vg1 wanting to get blood work done, is not able to get into OB until a month in a half. Denies bleeding or ABD cramping/pain. vg1
--- NOTE | 2023-03-15 18:03 | EDPHYS ---
Physician Documentation [facility] Name: Kylah France Age: 27 yrs Sex: Female : 1995 Arrival Date: 03/15/2023 Time: 16:52 Bed 19 Private MD: ED Physician Reagan Corrales HPI: 03/15 22:13 This 27 yrs old Female presents to ER via Ambulatory with complaints of test. snw 17:45 Pt wants hormone panel and test as she cannot see her own OB x 1.5 months. snw 22:13 The patient has been recently seen by a physician:. 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 - Social history:: Smoking status: Reported history of juuling and/or vaping. ROS: 17:43 Eyes: Negative for injury, pain, redness, and discharge, ENT: Negative for injury, snw pain, and discharge, Neck: Negative for injury, pain, and swelling, Cardiovascular: Negative for chest pain, palpitations, and edema, Respiratory: Negative for shortness of breath, cough, wheezing, and pleuritic chest pain, Abdomen/GI: Negative for abdominal pain, nausea, vomiting, diarrhea, and constipation, Back: Negative for injury and pain, : Negative for injury, bleeding, discharge, and swelling, MS/Extremity: Negative for injury and deformity, Skin: Negative for injury, rash, and discoloration, Neuro: Negative for headache, weakness, numbness, tingling, and seizure. 17:43 Constitutional: Positive for fatigue, malaise, poor PO intake, different tastes than normal. 17:43 Psych: Positive for fatigue, different tastes, increased thirst, multiple negative tests, both at home and in at least one other ED. Exam: 17:43 Constitutional: This is a well developed, well nourished patient who is awake, alert, snw and in no acute distress. Head/Face: Normocephalic, atraumatic. Eyes: Pupils equal round and reactive to light, extra-ocular motions intact. Lids and lashes normal. Conjunctiva and sclera are non-icteric and not injected. Cornea within normal limits. Periorbital areas with no swelling, redness, or edema. ENT: Nares patent. No nasal discharge, no septal abnormalities noted. Tympanic membranes are normal and external auditory canals are clear. Oropharynx with no redness, swelling, or masses, exudates, or evidence of obstruction, uvula midline. Mucous membranes moist. Neck: Trachea midline, no thyromegaly or masses palpated, and no cervical lymphadenopathy. Supple, full range of motion without nuchal rigidity, or vertebral point tenderness. No Meningismus. Chest/axilla: Normal chest wall appearance and motion. Nontender with no deformity. No lesions are appreciated. Cardiovascular: Regular rate and rhythm with a normal S1 and S2. No gallops, murmurs, or rubs. Normal PMI, no JVD. No pulse deficits. Respiratory: Lungs have equal breath sounds bilaterally, clear to auscultation and percussion. No rales, rhonchi or wheezes noted. No increased work of breathing, no retractions or nasal flaring. Abdomen/GI: Soft, non-tender, with normal bowel sounds. No distension or tympany. No guarding or rebound. No evidence of tenderness throughout. Back: No spinal tenderness. No costovertebral tenderness. Full range of motion. Skin: Warm, dry with normal turgor. Normal color with no rashes, no lesions, and no evidence of cellulitis. MS/ Extremity: Pulses equal, no cyanosis. Neurovascular intact. Full, normal range of motion. Neuro: Awake and alert, GCS 15, oriented to person, place, time, and situation. Cranial nerves II-XII grossly intact. Motor strength 5/5 in all extremities. Sensory grossly intact. Cerebellar exam normal. Normal gait. Psych: Awake, alert, with orientation to person, place and time. Behavior, mood, and affect are within normal limits. Vital Signs: 17:13 BP 122 / 86; Pulse 73; Resp 16; Temp 98.1(TE); Pulse Ox 100% on R/A; Weight 63.5 kg; vg1 Height 5 ft. 1 in. ; Pain 0/10; 18:28 BP 111 / 82; Pulse 67; Resp 17 S; Pulse Ox 99% on R/A; kc6 17:13 Body Mass Index 26.45 (63.50 kg, 154.94 cm) vg1 17:13 Pain Scale: Adult vg1 MDM: 17:23 Patient medically screened. snw 22:11 Differential Diagnosis pt would like test and hormone panel eval. Data snw reviewed: vital signs, nurses notes, lab test result(s). Historians other than the Patient: Spouse/Significant Other: Sig other. Counseling: I had a detailed discussion with the patient and/or guardian regarding: the historical points, exam findings, and any diagnostic results supporting the discharge/admit diagnosis, the need for outpatient follow up, a family practitioner, an OB/Gyne specialist, to return to the emergency department if symptoms worsen or persist or if there are any questions or concerns that arise at home. Special discussion: Based on the history and exam findings, there is no indication for further emergent testing or inpatient evaluation. I discussed with the patient/guardian the need to see the OB Gyne specialist for further evaluation of the symptoms. I discussed with the patient/guardian the need to see the primary care provider for further evaluation of the symptoms. ED course: pt does not have a medical emergency. Has had numerous negative test, seen at [place] ED for same, test negative. 03/15 17:35 Order name: Urinalysis W/Microscopic; Complete Time: 18:00 snw 03/15 17:53 Order name: Glucose, Ancillary Testing; Complete Time: 17:55 EDMS 03/15 17:35 Order name: FSBS; Complete Time: 17:43 snw Administered Medications: No medications were administered Disposition Summary: 03/15/23 18:02 Discharge Ordered Location: Home snw Condition: Stable snw Diagnosis - Encounter for screening, unspecified snw Followup: snw - With: Emergency Department - When: As needed - Reason: Worsening of condition Followup: snw - With: Private Physician - When: 2 - 3 days - Reason: Recheck today's complaints, Continuance of care, Re-evaluation by your physician Discharge Instructions: - Discharge Summary Sheet snw - Health Maintenance, Female snw - Rehydration, Adult snw Forms: - Medication Reconciliation Form snw - Thank You Letter snw - Antibiotic Education snw - Prescription Opioid Use snw Signatures: Dispatcher [employer] Chayito Florez, DAVID-C PACKING AND STAMPING MACHINE OPERATOR-Susan Bhatti, RN RN vg1 Corrections: (The following items were deleted from the chart) 17:16 17:15 Home Meds: Metformin Oral; vg1 vg1
[2023-03-15 19:15] VITALS: TEMP 98.1
[2023-03-15 19:16] VITALS: BP 111/82; O2SAT 99
== END 2023-03-15 18:55 | disposition home or self-care (01) ==
LOC: ER 16:52
DX: Z32.02 Encounter for pregnancy test, result negative (principal)
CPT/HCPCS: 81001; 82947; 99283

== ENCOUNTER 2024-04-13 13:37 | Emergency (ER) | payer OTHER, SELFPAY ==
--- OUTSIDE RECORDS SUMMARY | 2024-04-13 13:41 | XMS REPORT | Continuity of Care Document ---
Author Name Unknown Address [address] [place] [address] [facility] Address [address] [place] [address] Care Team Providers Care Ultrasonic Hand Solderer Name Role Phone ANCA GALARZA Attending Clinician UnavailROSEMARIE Max Attending Clinician UnavailSUZY Nguyen Attending Clinician UnavailMARY Ojeda Attending Clinician Unavailable DEJUAN MARTÍNEZ Attending Clinician Unavailable CAT SCHMIDT Attending Clinician Unavailab dylan G_Pappalalitha Attending Clinician Unavailable YFN DREW Attending Clinician Unavailable MARIEL Attending Clinician Unavailable Demi Attending Clinician Unavailable Toby Jordan Attending Clinician [phone] JAGDEEP GRECO Attending Clinician UnavailYesica Wilson DO Attending Clinician [phone] YESICA PRECIADO Attending Clinician Unavailab le Doctor Unassigned, [place] Attending Clinician U Yusef Carpenter MD Attending Clinician [phone], [facility] Attending Clinician Unavailable FRANCY MADRIGAL Attending Clinician Unavailable KEV LONDONO Attending Clinician UnavailJOSH Arzola Attending Clinician Unavail able G_Angus Admitting Clinician Unavailable MARIEL Admitting Clinician Unavailable Kori_Sharon Admitting Clinician Unavailable JAGDEEP GRECO Admitting Clinician Gosia posada Payers Payer Name Policy Type Policy Number Effective Date Expirati on Date Source [facility] NAIKIRA MENJIVAR COPAY FOCUS 9 [id number] 2024 00:00:00 [employer] (EPO) [id number] 2021 00:00:00 2023 00:00:[place] [id number] 2020 00:00:[place] [id number] 2016 00:00:00 Problems Condition Name Condition Details Condition Category Status Onset Date Resolution Date Last Treatment Date Treating Clinician Comments Source Problem Active 03-29 00:00: 00 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 History of SARS-CoV-2 History of SARS-CoV-2 Problem Active 06-21 00:00: 00 [facility] Polycystic ovary syndrome Polycystic Ovary Syndrome Problem Active 06-20 00:00: 00 [facility] Amenorrhea Amenorrhea Problem Active 03-09 00:00: 00 [facility] Polycystic ovary syndrome Polycystic Ovary Syndrome Problem Active 03-09 00:00: 00 [facility] Female infertilit y associated with anovulatio n Female infertilit y associated with anovulatio n Disease Active 05-31 00:00: 00 Overview: 05/30/19 - FSH 5.95, LH 13.3, DHEA-S 2,564, prolactin 7.2, TSH 3.27, free testoster one 10, 17 hydroxypr ogesteron e normal, AMH - 27.155 [facility] PCOS (polycysti c ovarian syndrome) PCOS (polycysti c ovarian syndrome) Disease Active 05-27 00:00: 00 Overview: 06/01/19 - A pelvic US revealed a uterus measuring 7.7 x 4.3 x [...] ovarian syndrome. 05/30/19 hydroxypr ogesteron e normal. [facility] Absence of menstruati on Absence of menstruati on Disease Active 05-27 00:00: 00 [facility] PCOS (polycysti c ovarian syndrome) PCOS (polycysti c ovarian syndrome) Disease Active 05-27 00:00: 00 Overview: 06/01/19 - A pelvic US revealed a uterus measuring 7.7 x 4.3 x [...] ovarian syndrome. 05/30/19 hydroxypr ogesteron e normal. [facility] Hirsutism Hirsutism Disease Active 05-27 00:00: 00 [facility] Secondary dysmenorrh ea Secondary Dysmenorrh ea Problem Active 05-25 00:00: 00 [facility] Genetic disorder carrier Genetic Disorder Carrier Problem Active 01-23 00:00: 00 [facility] Oligomenor abdirahman Oligomenor abdirahman Problem Active [facility] Allergies, Adverse Reactions, Alerts Allergy Name Allergy Type Status Severity Reaction(s) Onset Date Inactive Date Treating Clinician Comments Source NO KNOWN ALLERGIE S Drug Class Active [facility] Social History Social Habit Start Date Stop Date Quantity Comments Source History of tobacco use Cigarette Smoker [facility] Sex Assigned At [facility] Alcohol intake 2019-11-10 00:00:00 2019-11-10 00:00:00 [facility] Smoking Status Start Date Stop Date Source Former Smoker [facility] Current every day smoker 2019-11-10 00:00:00 [facility] Medications Ordered Medication Name Filled Medication Name Start Date Stop Date Current Medication? Ordering Clinician Indication Dosage Frequency Signature (SIG) Comments Components Source HYDROcodone -acetaminop hen (NORCO 5) 5-325 mg tablet 1 tablet 11-10 22:45: 00 11-10 21:47 :00 No 1{tbl} 1 tablet, Oral, ONCE, 1 dose, [facility] 11/10/19 at 1645, TRUDI [facility] metFORMIN 500 mg tablet 05-31 00:00: 00 Yes [id number] 500mg Take 1 tablet by mouth 2 (two) times daily with meals. [facility] medroxyPROG ESTERone (PROVERA) 10 mg tablet 05-31 00:00: 00 06-11 04:59 :00 No [id number] 10mg Take 1 tablet by mouth daily for 10 days. On days 1-10 each month. [facility] No known medications No Un emma [facility] No known medications No Un emma [facility] No known medications No Un emma [facility] No known medications No Un emma [facility] One-A-Day Womens Formula 18 mg iron-400 mcg-500 mg Ca tablet Take by oral route. One-A-Day Womens Formula 18 mg iron-400 mcg-500 mg Ca tablet Take by oral route. No One-A-Day Womens Formula 18 mg iron-400 mcg-500 mg Ca tablet Take by oral route. [facility] azithromyci n 500 mg tablet Take 1 tablet every day by oral route as directed for 1 day. azithromyci n 500 mg tablet Take 1 tablet every day by oral route as directed for 1 day. No 1 Q1D azithromyc in 500 mg tablet Take 1 tablet every day by oral route as directed for [address] [facility] clomiphene citrate 50 mg tablet Take Clomid days 5-9 clomiphene citrate 50 mg tablet Take Clomid days 5-9 No clomiphene citrate 50 mg tablet Take Clomid days 5-9 [facility] Provera 10 mg tablet Take tablet 1-10 Provera 10 mg tablet Take tablet 1-10 No Provera 10 mg tablet Take tablet 1-10 [facility] Vital Signs Vital Name Observation Time Observation Value Comments S ource BMI (Body Mass Index) 2024-04-12 00:00:00 22.7 kg/m2 [facility] BP Diastolic 2024-04-12 00:00:00 74 mm[Hg] [facility] Body Weight 2024-04-12 00:00:00 124 [lb_av] [facility] Height 2024-04-12 00:00:00 62 [in_i] [facility] BP Systolic 2024-04-12 00:00:00 114 mm[Hg] [facility] Body Weight 2024-03-29 00:00:00 121.8 [lb_av] [facility] Height 2024-03-29 00:00:00 62 [in_i] [facility] BP Systolic 2024-03-29 00:00:00 121 mm[Hg] [facility] BP Diastolic 2024-03-29 00:00:00 79 mm[Hg] [facility] Height 2024-03-15 00:00:00 62 [in_i] [facility] Body Weight 2024-03-15 00:00:00 121.2 [lb_av] [facility] BP Systolic 2024-03-15 00:00:00 112 mm[Hg] [facility] BMI (Body Mass Index) 2024-03-15 00:00:00 22.2 kg/m2 [facility] BP Diastolic 2024-03-15 00:00:00 74 mm[Hg] [facility] BMI (Body Mass Index) 2024-03-10 00:00:00 21.6 kg/m2 [facility] Body Weight 2024-03-10 00:00:00 118.3 [lb_av] [facility] BP Systolic 2024-03-10 00:00:00 107 mm[Hg] [facility] Height 2024-03-10 00:00:00 62 [in_i] [facility] BP Diastolic 2024-03-10 00:00:00 69 mm[Hg] [facility] Height 2024-03-04 00:00:00 62 [in_i] [facility] BP Systolic 2024-03-04 00:00:00 111 mm[Hg] [facility] BMI (Body Mass Index) 2024-03-04 00:00:00 21.2 kg/m2 [facility] BP Diastolic 2024-03-04 00:00:00 72 mm[Hg] [facility] Body Weight 2024-03-04 00:00:00 115.9 [lb_av] [facility] BP Diastolic 2023-12-07 00:00:00 77 mm[Hg] [facility] Height 2023-12-07 00:00:00 62 [in_i] [facility] Body Weight 2023-12-07 00:00:00 107.9 [lb_av] [facility] BMI (Body Mass Index) 2023-12-07 00:00:00 19.7 kg/m2 [facility] BP Systolic 2023-12-07 00:00:00 114 mm[Hg] [facility] BP Systolic 2023-07-10 00:00:00 102 mm[Hg] [facility] Body Weight 2023-07-10 00:00:00 116 [lb_av] [facility] BMI (Body Mass Index) 2023-07-10 00:00:00 21.2 kg/m2 [facility] Height 2023-07-10 00:00:00 62 [in_i] [facility] BP Diastolic 2023-07-10 00:00:00 66 mm[Hg] [facility] Height 2022-04-11 00:00:00 62 [in_i] [facility] BMI (Body Mass Index) 2022-04-11 00:00:00 26.1 kg/m2 [facility] BP Systolic 2022-04-11 00:00:00 119 mm[Hg] [facility] Body Weight 2022-04-11 00:00:00 142.7 [lb_av] [facility] BP Diastolic 2022-04-11 00:00:00 78 mm[Hg] [facility] BP Diastolic 2021-12-09 00:00:00 81 mm[Hg] [facility] Height 2021-12-09 00:00:00 62 [in_i] [facility] BMI (Body Mass Index) 2021-12-09 00:00:00 26.8 kg/m2 [facility] BP Systolic 2021-12-09 00:00:00 114 mm[Hg] [facility] Body Weight 2021-12-09 00:00:00 146.6 [lb_av] [facility] BP Diastolic 2021-07-17 00:00:00 89 mm[Hg] [facility] Height 2021-07-17 00:00:00 62 [in_i] [facility] BMI (Body Mass Index) 2021-07-17 00:00:00 27.7 kg/m2 [facility] BP Systolic 2021-07-17 00:00:00 113 mm[Hg] [facility] Body Weight 2021-07-17 00:00:00 151.4 [lb_av] [facility] BP Diastolic 2021-07-01 00:00:00 68 mm[Hg] [facility] Height 2021-07-01 00:00:00 62 [in_i] [facility] BMI (Body Mass Index) 2021-07-01 00:00:00 27.4 kg/m2 [facility] BP Systolic 2021-07-01 00:00:00 98 mm[Hg] [facility] Body Weight 2021-07-01 00:00:00 2400 [oz_av] [facility] BP Diastolic 2021-04-09 00:00:00 68 mm[Hg] [facility] Height 2021-04-09 00:00:00 62 [in_i] [facility] BMI (Body Mass Index) 2021-04-09 00:00:00 28.9 kg/m2 [facility] BP Systolic 2021-04-09 00:00:00 106 mm[Hg] [facility] Body Weight 2021-04-09 00:00:00 158 [lb_av] [facility] BP Diastolic 2020-03-09 00:00:00 85 mm[Hg] [facility] Height 2020-03-09 00:00:00 61 [in_i] [facility] BMI (Body Mass Index) 2020-03-09 00:00:00 28.3 kg/m2 [facility] BP Systolic 2020-03-09 00:00:00 127 mm[Hg] [facility] Body Weight 2020-03-09 00:00:00 150 [lb_av] [facility] Systolic blood pressure 2019-11-10 21:23:25 120 mm[Hg] [facility] Diastolic blood pressure 2019-11-10 21:23:25 85 mm[Hg] [facility] Heart rate 2019-11-10 21:23:25 81 /min [facility] Body temperature 2019-11-10 21:23:25 37.06 Kelli [facility] Respiratory rate 2019-11-10 21:23:25 18 /min [facility] Body weight 2019-11-10 20:59:00 63.504 kg [facility] BMI 2019-11-10 20:59:00 26.45 kg/m2 [facility] Oxygen saturation in Arterial blood by Pulse oximetry 2019-11-10 20:59:00 99 /min [facility] Systolic blood pressure 2019-05-27 21:30:00 126 mm[Hg] [facility] Diastolic blood pressure 2019-05-27 21:30:00 79 mm[Hg] [facility] Heart rate 2019-05-27 21:30:00 84 /min [facility] Body temperature 2019-05-27 21:30:00 36.89 Kelli [facility] Respiratory rate 2019-05-27 21:30:00 20 /min [facility] Body height 2019-05-27 21:30:00 154.9 cm [facility] Body weight 2019-05-27 21:30:00 66.86 kg [facility] BMI 2019-05-27 21:30:00 27.85 kg/m2 [facility] BP Diastolic 2019-04-19 00:00:00 77 mm[Hg] [facility] Height 2019-04-19 00:00:00 61 [in_i] [facility] BMI (Body Mass Index) 2019-04-19 00:00:00 27 kg/m2 [facility] BP Systolic 2019-04-19 00:00:00 130 mm[Hg] [facility] Body Weight 2019-04-19 00:00:00 142.9 [lb_av] [facility] BP Diastolic 2019-01-06 00:00:00 65 mm[Hg] [facility] Height 2019-01-06 00:00:00 61 [in_i] [facility] BMI (Body Mass Index) 2019-01-06 00:00:00 24.5 kg/m2 [facility] BP Systolic 2019-01-06 00:00:00 108 mm[Hg] [facility] Body Weight 2019-01-06 00:00:00 129.6 [lb_av] [facility] Procedures Procedure Date / Time Performed Performing Clinician Source ULTRASOUND, UTERUS REAL TIME WITH IMAGE DOCUMENTAITON, TRANSVAGINAL 2024-04-12 00:00:00 [facility] ULTRASOUND, UTERUS REAL TIME WITH IMAGE DOCUMENTAITON, TRANSVAGINAL 2024-03-29 00:00:00 [facility] ULTRASOUND, UTERUS REAL TIME WITH IMAGE DOCUMENTAITON, TRANSVAGINAL 2024-03-15 00:00:00 [facility] ULTRASOUND, UTERUS REAL TIME WITH IMAGE DOCUMENTAITON, TRANSVAGINAL 2024-03-10 00:00:00 [facility] US, transvaginal 2021-08-21 00:00:00 [facility] POCT TEST 2019-11-10 21:09:00 Kassandra Verduzco [facility] NOTICE OF PRIVACY PRACTICES 2019-11-10 20:49:09 Doctor Unassigned, [place] [facility] CONSENT/REFUSAL FOR DIAGNOSIS AND TREATMENT 2019-11-10 20:46:09 Doctor Unassigned, [place] [facility] US PELVIS COMPLETE NON-OB 2019-06-02 00:04:15 Yusef Pierre [facility] POCT TEST 2019-05-27 00:00:00 Peggy Pierre [facility] Plan of Care Planned Activity Planned Date Details Comments Source Diagnostic Test Pending 2021-07-01 00:00:00 rapid SARS CoV 2 Ag, QL IA, respiratory specimen [code = rapid SARS CoV 2 Ag, QL IA, respiratory specimen] [facility] Encounters Start Date/Time End Date/Time Encounter Type Admission Type Attending Clinicians Care Facility Care Department Encounter ID Source 2024-04-13 07:30:00 Inpatient ANCA HERNANDEZ [facility] [id number] [facility] 2024-04-18 14:00:00 2024-04-18 14:00:00 Outpatient ROSEMARIE RUDOLPH [id number] N[facility] Fleming 2024-04-12 00:00:00 2024-04-12 00:00:00 Anca Galarza MD: [address] [place] [address], [address], [place] [address] , Ph. [phone] [facility] [id number] [facility] 2024-03-29 10:30:00 2024-03-29 10:30:00 Outpatient ANCA HERNANDEZ [facility] [id number] [facility] 2024-03-29 00:00:00 2024-03-29 00:00:00 Anca Galarza MD: [address], [address], [place] [id number] , Ph. [phone] [facility] OBGY [id number] [facility] 2024-03-25 13:30:00 2024-03-25 13:30:00 Outpatient SUZY HAIR [id number] [facility] 2024-03-21 13:45:00 2024-03-21 13:45:00 Outpatient ROSEMARIE RUDOLPH [id number] [facility] 2024-03-15 00:00:00 2024-03-15 00:00:00 NORRIS SolomonBC: [address], [address], [place] [address] , Ph. [phone] [facility] [id number] [facility] 2024-03-12 11:32:00 2024-03-12 11:32:00 Outpatient MARY JIMENEZ [facility] [id number] [facility] 2024-03-10 16:07:00 2024-03-10 16:07:00 Outpatient AGUSTINA SHEIKH MARY [facility] [id number] [facility] 2024-03-10 00:00:00 2024-03-10 00:00:00 DAVID Solomon-BC: [address], [address] [address] , Ph. [phone] [facility] O[facility] [id number] [facility] 2024-03-07 09:28:00 2024-03-07 09:28:00 Outpatient MARY JIMENEZ [facility] [id number] [facility] 2024-03-05 09:40:00 2024-03-05 09:40:00 Outpatient MARY JIMENEZ [facility] [id number] [facility] 2024-03-04 00:00:00 2024-03-04 00:00:00 Maryshiloh Sheikh [facility]-: [address], [address], [place] [address] , Ph. [phone] [facility] [id number] [facility] 2024-03-03 14:58:00 2024-03-03 16:30:00 Emergency ER MARTÍNEZDEJUAN [facility] [id number] [facility] 2024-03-03 14:58:00 2024-03-03 16:30:00 emergency [facility] [id number] 2024-01-12 00:24:00 2024-01-12 04:00:00 Emergency ER CAT SCHMIDT [facility] [id number] [facility] 2024-01-12 00:24:00 2024-01-12 04:00:00 emergency [facility] [id number] 2023-12-07 00:00:00 2023-12-07 00:00:00 Outpatient [facility] [id number] [facility] 2023-12-07 00:00:00 2023-12-07 00:00:00 Jagdeep Greco MD: [address], [address], [place] [address] , Ph. [phone] [facility] [id number] [facility] 2023-12-04 00:00:00 2023-12-04 00:00:00 Outpatient G_Pappas [facility] [id number] [facility] 2023-12-02 00:00:00 2023-12-02 00:00:00 Outpatient G_Pappas [facility] [id number] [facility] 2023-07-10 00:00:00 2023-07-10 00:00:00 Outpatient G_Pappas [facility] [id number] [facility] 2023-07-10 00:00:00 2023-07-10 00:00:00 Jagdeep Greco MD: [address], [address], [place] [address] , Ph. [phone] [facility] [id number] [facility] 2023-05-27 00:00:00 2023-05-27 00:00:00 Outpatient G_Pappas [facility] [id number] [facility] 2023-01-29 20:49:00 2023-01-30 00:40:00 Emergency ER YFN DREW [facility] [id number] [facility] 2023-01-29 20:49:00 2023-01-30 00:40:00 emergency [id number] 2022-04-11 09:18:00 2022-04-11 09:18:00 Outpatient MARY JIMENEZ [facility] [id number] [facility] 2022-04-11 00:00:00 2022-04-11 00:00:00 Outpatient G_Pappas [facility] [id number] [facility] 2022-04-11 00:00:00 2022-04-11 00:00:00 [facility] [address], [place] [address] , Ph. [phone] G_[facility]appas [facility] [id number] [facility] 2022-04-10 11:28:00 2022-04-10 11:28:00 Outpatient G_Pappas [facility] [id number] [facility] 2022-03-11 10:23:00 2022-03-11 10:23:00 Outpatient G_Pappas [facility] [id number] [facility] 2022-02-26 03:56:00 2022-02-26 03:56:00 Outpatient ERICKSON_R [facility] [id number] [facility] 2021-12-09 00:00:00 2021-12-09 00:00:00 Jagdeep Greco MD: [address] [address] , Ph. [phone] G_Pappas [facility] [id number] [facility] 2021-12-04 08:08:00 2021-12-04 08:08:00 Outpatient White_M [facility] [id number] [facility] 2021-08-21 00:00:00 2021-08-21 00:00:00 NORRIS Solomon: [address] [facility] [address] , Ph. [phone] White[facility]M [facility] [id number] [facility] 2021-08-09 07:53:00 2021-08-09 07:53:00 Outpatient ERICKSON_R [id number] 2021-07-17 00:00:00 2021-07-17 00:00:00 Mary Kori DOCUMENTATION ANALYST-BC: [address] [place] [address], [place] [address] , Ph. [phone] [facility] [id number] [facility] 2021-07-16 08:29:00 2021-07-16 08:29:00 Outpatient ERICKSON_R [id number] 2021-07-04 11:04:00 2021-07-04 11:04:00 Outpatient White[facility] [id number] [facility] 2021-07-01 10:13:00 2021-07-01 10:13:00 Outpatient ERICKSON_R [facility] 20 [facility] 2021-07-01 00:00:00 2021-07-01 00:00:00 Toby Jordan, DO: [address] [place] [address] , [address] [facility], [facility] JORDAN [id number] [facility] 2021-07-01 00:00:00 2021-07-01 00:00:00 Outpatient Toby Jordan [facility] [id number] 2021-06-20 10:40:00 2021-06-20 10:40:00 Outpatient ERICKSON_R [facility] [id number] [facility] 2021-06-20 06:57:00 2021-06-20 06:57:00 Outpatient ERICKSON_R [facility] [id number] [facility] 2021-06-20 00:00:00 2021-06-20 00:00:00 Toby Jordan, DO: [address], [facility] [place] [address] , Ph. [facility] - [facility], [facility] - [facility], DR[address] JORDAN [id number] Counts Include 234 [facility] 2021-04-09 10:13:00 2021-04-09 10:13:00 Outpatient AGUSTINA SHEIKH MARY [facility] [id number] [facility] 2021-04-09 00:00:00 2021-04-09 00:00:00 Mary Sheikh DOCUMENTATION ANALYST-BC: [address] [address] , Ph. [phone] Kori_Sharon [facility] 06 [facility] 2021-02-05 10:34:00 2021-02-05 10:34:00 Outpatient G_Pappas [facility] [id number] [facility] 2020-08-29 02:18:00 2020-08-29 02:18:00 Outpatient G_Pappas [facility] [id number] [facility] 2020-06-14 04:54:00 2020-06-14 04:54:00 Outpatient G_Pappas [facility] [id number] [facility] 2020-03-29 05:11:00 2020-03-29 05:11:00 Outpatient G_Pappas [facility] [id number] [facility] 2020-03-11 08:13:00 2020-03-11 08:13:00 Outpatient G_Pappas [facility] [id number] [facility] 2020-03-09 15:49:00 2020-03-09 15:49:00 Outpatient JAGDEEP COSBY [facility] [id number] [facility] 2020-03-09 00:00:00 2020-03-09 00:00:00 Jagdeep Greco MD: [address], [place] [address] , Ph. [phone] Mani_Angus [facility] [employer] [id number] 0529 [facility] 2019-11-10 15:21:07 2019-11-10 15:49:00 Emergency Yesica Preciado [facility] 1.840.114 350.1.13.10 4.2.7.2.686 [id number] [facility] 2019-11-10 15:21:07 2019-11-10 15:49:00 Emergency X [facility] ERT [id number] [facility] 2019-11-10 00:00:00 2019-11-10 00:00:00 Orders Only Doctor Unassigned, [place] [facility] 1.840.114 350.1.13.10 4.2.7.2.686 [id number] [facility] 2019-06-06 00:00:00 2019-06-06 00:00:00 Patient Secure Msg Doctor Unassigned, [place] [facility] 1..840.114 350.1.13.10 4.2.7.2.686 [id number] [facility] 2019-06-01 18:32:48 2019-06-01 23:59:00 Hospital Encounter Yusef Pierre [facility] 1.840.114 350.1.13.10 4.2.7.2.686 [id number] [facility] 2019-05-27 16:17:49 2019-05-31 18:01:19 Office Visit Yusef Pierre [facility] Professio nal Building 1.840.114 350.1.13.10 4.2.7.2.686 [id number] [facility] 2019-05-30 13:42:34 2019-05-30 13:57:34 Wrapper Layer Visit 1, Adc Lab Yusef Pierre [facility] 1.2.840.114 350.1.13.10 4.2.7.2.686 [id number] [facility] 2019-05-27 00:00:00 2019-05-27 00:00:00 Telephone Ignacio [facility] Professio nal [facility] 1.2.840.114 350.1.13.10 4.2.7.2.686 [id number] [facility] 2019-05-27 00:00:00 2019-05-27 00:00:00 Telephone Ignacio [facility] Professio nal [facility] 1.2.840.114 350.1.13.10 4.2.7.2.686 [id number] [facility] 2019-04-26 11:22:00 2019-04-26 11:22:00 Outpatient Radha [facility] [id number] [facility] 2019-04-19 11:16:00 2019-04-19 11:16:00 Outpatient JAGDEEP COSBY [facility] [id number] [facility] 2019-04-19 00:00:00 2019-04-19 00:00:00 Jagdeep Greco MD: [address], [address], [place] [address] , Ph. [phone] [facility] [id number] [facility] 2019-01-06 16:39:00 2019-01-06 16:39:00 Outpatient FRANCY FRIED [facility] [id number] [facility] 2019-01-06 00:00:00 2019-01-06 00:00:00 Francy Madrigal, WHNP: [address], [address], [place] [address] , Ph. [phone] [facility] OBGYN [id number] [facility] 2018-08-02 16:17:00 2018-08-02 16:17:00 Outpatient JAGDEEP COSBY [facility] [id number] [facility] 2018-01-05 10:13:00 2018-01-05 10:13:00 Outpatient FRANCY FRIED [facility] [id number] [facility] 2016-08-22 04:48:00 2016-08-23 12:55:00 Inpatient AGUSTINA ANGUS, [facility]EP [facility] [id number] [facility] 2016-07-17 10:56:00 2016-07-17 10:56:00 Outpatient AGUSTINA ANGUSJAGDEEP COPELAND [facility] [id number] [facility] 2016-06-05 08:54:00 2016-06-05 08:54:00 Outpatient AGUSTINA ANGUSJAGDEEP COPELAND [facility] [id number] [facility] 2016-03-18 09:02:00 2016-03-18 09:02:00 Outpatient AGUSTINA GRECO JAGDEEP [facility] [id number] [facility] 2016-01-24 10:52:00 2016-01-24 10:52:00 Outpatient AGUSTINA ANGUS, JAGDEEP [facility] [id number] [facility] 2015-10-25 11:08:00 2015-10-25 11:08:00 Outpatient AGUSTINA ANGUS, JAGDEEP [facility] [id number] [facility] 2015-09-13 09:52:00 2015-09-13 09:52:00 Outpatient EL ANGUS, JAGDEEP [facility] [id number] [facility] 2002-09-27 16:51:00 2002-09-27 20:35:00 Emergency ER KEV LONDONO [facility] [id number] [facility] 1999-12-04 08:29:00 1999-12-04 11:10:00 Emergency ER JOSH VARGAS [facility] [id number] [facility] Results Test Description Test Time Test Comments Results Result Co mments Source [facility] pres id [id number] 08:29:00* Test Item Value Reference Range Interpretation Comme nts culture,urine (test code = culture,urine) SCANT SKIN JIAN PRESENT. NO PATHOGEN PRESENT AT 2 DAYS. [facility] Hospitalvaricella zoster Ab,[id number] 15:14:00* Test Item Value Reference Range Interpretation Comme nts varicella zoster Ab,IgG (test code = varicella zoster Ab,IgG) 146 index See_Comment A [Automated messa ge] The system which generated this result transmitted reference range: immune >165. The reference range was not used to interpret this result as normal/abnormal. [facility] surface [id number] 10:35:00* Test Item Value Reference Range Interpretation Comme nts .hepatitis B surface antigen (test code = .hepatitis B surface antigen) Negative negative [facility]RPR2024-06-18 13:40:00* Test Item Value Reference Range Interpretation Comme nts RPR (test code = RPR) NONREACTIVE nonreactive [facility] HospitalHCG [id number] 13:39:00* Test Item Value Reference Range Interpretation Comme nts HCG quantitative (test code = HCG quantitative) 79060.0 mIU/mL 0-5 H [facility] ([facility])2024-03-29 13:19:00* Test Item Value Reference Range Interpretation Comme nts HIV P24 Ag (test code = HIV P24 Ag) NON-REACTIVE nonreactive HIV-1/2 Ab (test code = HIV- 1/2 Ab) NON-REACTIVE nonreactive [facility] Hospitalrubella [id number] 13:04:00* Test Item Value Reference Range Interpretation Comme nts rubella IgG (test code = rub sravanthi IgG) 29.43 IU/mL [facility] Hospitalthyroid stimulating hormone [id number] 12:58:00* Test Item Value Reference Range Interpretation Comme nts thyroid stimulating hormone L (test code = thyroid stimulating hormone L) 2.39 uIU/mL 0.36-3.74 [facility] HospitalThyroxine (T4) free [Mass/volume] in Serum or Plasma 2024-03-29 12:58:00* Test Item Value Reference Range Interpretation Comme nts free T4 (test code = free T4) 1.26 NG/dL 0.93-1.7 [facility]12 panel drug [id number] 12:46:00* Test Item Value Reference Range Interpretation Comme nts drug screen note (test code = drug screen note) . amphetamines screen urine (t est code = amphetamines screen urine) NEGATIVE negative barbiturates, urine quant. ( test code = barbiturates, urine quant.) NEGATIVE negative benzodiazepines screen urine (test code = benzodiazepines screen urine) NEGATIVE negative cannabinoids (test code = cannabinoids) NEGATIVE negative cocaine (test code = cocaine) NEGATIVE negative opiates (test code = opiates) NEGATIVE negative hydrocodone (test code = hydrocodone) NEGATIVE negative fentanyl (test code = fentanyl) NEGATIVE negative phencyclidine (test code = phencyclidine) NEGATIVE negative methadone (test code = methadone) NEGATIVE negative propoxyphene (test code = propoxyphene) NEGATIVE negative oxycodone (test code = oxycodone) NEGATIVE negative [facility] Hospitalhemoglobin [id number] 12:41:00* Test Item Value Reference Range Interpretation Comme nts Hemoglobin A1c/Hemoglobin.to mica in Blood (test code = 4548-4) 4.5 % 4.0-6.0 [facility] W Auto Differential panel - [id number] 12:23:00 * Test Item Value Reference Range Interpretation Comme nts white blood count (test code = white blood count) 10.4 K/uL 4.0-11.5 red blood count (test code = red blood count) 4.11 M/uL 3.80-5.20 hemoglobin (test code = hemoglobin) 12.5 g/dL 10.5-15.7 hematocrit (test code = hematocrit) 37.0 % 34.0-50.0 mean corpuscular volume (luis t code = mean corpuscular volume) 90.0 fL 86.0-100.0 mean corpuscular hemoglobin (test code = mean corpuscular hemoglobin) 30.4 pg 26.2-33.4 mean corpuscular HGB conc (t est code = mean corpuscular HGB conc) 33.8 g/dL 30.0-34.0 red cell distribution width (test code = red cell distribution width) 12.1 % 12.0-15.5 platelet count (test code = platelet count) 244 K/uL 165-450 mean platelet volume (test c ode = mean platelet volume) 10.8 fL 9.4-12.6 neutrophils % (test code = neutrophils %) 71.3 % 44.4-80.1 Ig% (test code = Ig%) 0.5 % 0.0-0.4 H lymphocyte% (test code = lymphocyte%) 20.1 % 10.0-50.0 mono % (test code = mono %) 6.6 % 3.6-12.0 eos % (test code = eos %) 0.9 % 0.0-5.4 basophil % (test code = baso sujata %) 0.6 % 0.1-1.2 absolute neutrophil count (t est code = absolute neutrophil count) 7.43 K/uL 1.56-6.13 H Ig# (test code = Ig#) 0.05 K/uL 0.00-0.03 H lymph # (test code = lymph #) 2.09 K/uL 1.18-3.74 mono # (test code = mono #) 0.69 K/uL 0.24-0.86 eos # (test code = eos #) 0.09 K/uL 0.04-0.36 basophil # (test code = baso sujata #) 0.06 K/uL 0.01-0.08 NRBC% (test code = NRBC%) 0 /100 WBC 0-0.2 NRBC# (test code = NRBC#) 0 K/uL [facility] HospitalIndirect antiglobulin test.unspecified reagent [Presence] in Serum or [id number] 10:41:00* Test Item Value Reference Range Interpretation Comme nts blood type (test code = blood type) AP ind alvino (test code = ind alvino) NEGATIVE [facility] HospitalABO & Rh group [Type] in [id number] 10:41:00* Test Item Value Reference Range Interpretation Comme nts blood type (test code = blood type) AP ind alvino (test code = ind alvino) NEGATIVE [facility] HospitalUrinalysis macro (dipstick) panel - [id number] 11:30:31* Test Item Value Reference Range Interpretation Comme nts Leukocytes (test code = Leukocytes) Negative Nitrite (test code = Nitrite) negative Urobilinogen (test code = Urobilinogen) .2 Protein (test code = Protein) Negative pH (test code = pH) 8.0 Blood (test code = Blood) Negative Specific Malakoff (test code = Specific Malakoff) 1.020 Ketone (test code = Ketone) Negative Bilirubin (test code = Bilirubin) Negative Glucose (test code = Glucose) Negative Appearance (test code = Appearance) Clear Color (test code = Color) Yellow [facility] [id number] 12:59:00* Test Item Value Reference Range Interpretation Comme nts HCG quantitative (test code = HCG quantitative) 1197.0 mIU/mL 0-5 H [facility] [id number] 18:11:00* Test Item Value Reference Range Interpretation Comme nts HCG quantitative (test code = HCG quantitative) 711.2 mIU/mL 0-5 H [facility] HospitalUrinalysis macro (dipstick) panel - [id number] 15:25:30* Test Item Value Reference Range Interpretation Comme nts Leukocytes (test code = Leukocytes) Negative Nitrite (test code = Nitrite) negative Urobilinogen (test code = Urobilinogen) .2 Protein (test code = Protein) Negative pH (test code = pH) 7.0 Blood (test code = Blood) Negative Specific Malakoff (test code = Specific Malakoff) 1.025 Ketone (test code = Ketone) Negative Bilirubin (test code = Bilirubin) Negative Glucose (test code = Glucose) Negative Appearance (test code = Appearance) Clear Color (test code = Color) Yellow [facility] [id number] 10:56:00* Test Item Value Reference Range Interpretation Comme [facility] HCG quantitative (test code = HCG quantitative) 269.9 mIU/mL 0-5 H [facility] [id number] 10:41:00* Test Item Value Reference Range Interpretation Comme [facility] HCG quantitative (test code = HCG quantitative) 117.4 mIU/mL 0-5 H [facility] Hospitalpregnancy test, [id number] 09:11:32* Test Item Value Reference Range Interpretation Comme [facility] Test (test code = Test) positive [facility] HospitalUrinalysis macro (dipstick) panel - [id number] 09:11:18* Test Item Value Reference Range Interpretation Comme nts Leukocytes (test code = Leukocytes) Negative Nitrite (test code = Nitrite) negative Urobilinogen (test code = Urobilinogen) .2 Protein (test code = Protein) Negative pH (test code = pH) 6.0 Blood (test code = Blood) Large Specific Malakoff (test code = Specific Malakoff) 1.030 Ketone (test code = Ketone) Negative Bilirubin (test code = Bilirubin) Negative Glucose (test code = Glucose) Negative Appearance (test code = Appearance) Clear Color (test code = Color) Yellow [facility]pregnancy test, [id number] 15:18:40* Test Item Value Reference Range Interpretation Comme [facility] Test (test code = Test) negative [facility] Grouppregnancy test, [id number] 10:46:27* Test Item Value Reference Range Interpretation Comme [facility] Test (test code = Test) negative [facility] GroupUrinalysis macro (dipstick) panel - [id number] 08:49:00* Test Item Value Reference Range Interpretation Comme nts Leukocytes (test code = Leukocytes) Negative Nitrite (test code = Nitrite) negative Urobilinogen (test code = Urobilinogen) .2 Protein (test code = Protein) Negative pH (test code = pH) 5.5 Blood (test code = Blood) Negative Specific Malakoff (test code = Specific Malakoff) 1.025 Ketone (test code = Ketone) Negative Bilirubin (test code = Bilirubin) Negative Glucose (test code = Glucose) Negative Appearance (test code = Appearance) Clear Color (test code = Color) Yellow [facility]pregnancy test, [id number] 14:17:59* Test Item Value Reference Range Interpretation Comme [facility] Test (test code = Test) negative [facility] Ag [Presence] in Respiratory specimen by Rapid [id number] 15:04:00* Test Item Value Reference Range Interpretation Comme [facility] SARS CoV 2 (test code = SARS CoV 2) positive [facility], [id number] 09:24:00* Test Item Value Reference Range Interpretation Comme [facility] Test (test code = Test) negative [facility]allab[facility] blood [id number] 00:00:00* Test Item Value Reference Range Interpretation Comme [facility] blood collection (test code = [facility] blood collection) sent [facility]Green[facility] HospitalUrinalysis macro (dipstick) panel - [id number] 14:34:27* Test Item Value Reference Range Interpretation Comme [facility] Leukocytes (test code = Leukocytes) Negative Nitrite (test code = Nitrite) negative Urobilinogen (test code = Urobilinogen) 1 Protein (test code = Protein) Negative pH (test code = pH) 7.0 Blood (test code = Blood) Negative Specific Malakoff (test code = Specific Malakoff) 1.025 Ketone (test code = Ketone) Negative Bilirubin (test code = Bilirubin) Negative Glucose (test code = Glucose) Negative Appearance (test code = Appearance) Clear Color (test code = Color) Yellow [facility] HospitalPOCT [id number] 21:09:00* Test Item Value Reference Range Interpretation Comme [facility] POCT PREG (test code = 1605) negative On board controls acceptable with C Line (test code = 3574) present POCT PREG LOT # (test code = 3575) [id number] POCT PREG TEST DATE ( test code = 3576) 2021-05-11 Lab Interpretation (test cod e = 83143-6) Normal [facility] [id number] 04:44:07 Bilaterally enlarged ovaries with numerous follicles raise the possibilityof polycystic ovarian syndrome. Per Rubio MD., have reviewed this study and agree with the abovereport.* * * * * * * * ORIGINAL REPORT * * * * * * * *TRANSABDOMINAL AND TRANSVAGINAL PELVIC ULTRASOUND HISTORY:?aub, PCOS CO MPARISON:?None FINDINGS: The uterus is normal in size and echotexture and exhibits no masses orfocal defects. It measures 7.7 x 4.3 x 5.4 cm. The endometrial stripemeasures a normal 5 mm. Several nabothian cysts are noted. The right ovary measures 6.0 x 3.2 x 3.1 cm and the left ovary measures 5.4x2.8 x 2.8 cm. Both ovaries have a [...] in the cul-de-sac. IMPRESSION Bilaterally enlarged ovaries withnumerous follicles raise the possibilityof polycystic ovarian syndrome.Alexandra Rubio MD., have reviewed this study and agree with the abovereport.[facility]PO[facility] [id number] 22:09:00* Test Item Value Reference Range Interpretation Comme nts POCT PREG (test code = 1605) Negative On board controls acceptable with C Line (test code = 3574) Yes POCT PREG LOT # (test code = 3575) POCT PREG TEST DATE ( test code = 3576) Lab Interpretation (test cod e = 87076-2) [facility] [id number] 22:09:00* Test Item Value Reference Range Interpretation Comme nts POCT PREG (test code = 1605) Negative On board controls acceptable with C Line (test code = 3574) Yes POCT PREG LOT # (test code = 3575) POCT PREG TEST DATE ( test code = 3576) Lab Interpretation (test cod e = 00120-6) [facility] [id number] 22:09:00* Test Item Value Reference Range Interpretation Comme nts POCT PREG (test code = 1605) Negative On board controls acceptable with C Line (test code = 3574) Yes POCT PREG LOT # (test code = 3575) POCT PREG TEST DATE ( test code = 3576) Lab Interpretation (test cod e = 82019-1) [facility], [id number] 11:02:26* Test Item Value Reference Range Interpretation Comme nts Test (test code = Test) negative [facility]
--- NOTE | 2024-04-13 15:03 | RAD REPORT ---
EXAM DESCRIPTION: US - Transvaginal OB - 04/13/2024 2:38 pm CLINICAL HISTORY: Possible molar COMPARISON: <Comparisons> FINDINGS: A single gestational sac is seen within the uterus. The shape of the sac is within normal limits for gestational age. Mean sac diameter of the sac is 11 mm corresponding to 5 weeks 6 days ges tational age. No yolk sac or embryo yet detected. Moderate subchorionic bleed is seen surrounding the sac maximum measuring 13 mm. The maternal adnexa and ovaries are within normal limits. Normal Doppler blood flow was demonstrated to both ovaries. IMPRESSION: Single sac is present in the endometrium with a mean sac diameter yielding estimated ges tational age of 5 weeks 6 days. No yolk sac seen. No embryo seen. At this point, this could be a blig hted ovum or represent early IUP. Recommend serial HCG level measurements and follow-up pelvic sonogr am in 7-10 days for further evaluation. 13 mm subchorionic bleed.
[2024-04-13 15:43] LABS: Absolute Basophils 0.1 K/uL (0-0.5); Absolute Eosinophils 0.1 K/uL (0-0.5); Absolute Lymphocytes (CBC) 2.2 K/uL (0.7-4.9); Absolute Monocytes 0.6 K/uL (0.1-1.3); Absolute Neutrophil 6.3 K/uL (1.8-8.0); Basophils % 0.6 % (0-1.3); Eosinophils % 1.3 % (0-4.4); Hematocrit 37.7 % (36.0-45.0); Lymphocytes % 23.9 % (15.3-44.8); MCH 31.3 pg (27.0-35.0); MCHC 34.5 g/dL (32.0-36.0); MCV 90.7 fL (80-100); MPV 8.6 fL (7.6-11.3); Monocytes % 6.2 % (3.3-12.3); Nucleated Red Blood Cells % 0.1 % (0-0); Platelets 287 thou/uL (152-406); RBC Red Blood Cell Count 4.16 M/uL (3.86-4.86); Red Cell Distribution Width 12.7 % (12.1-15.2)
[2024-04-13 16:10] LABS: Anion Gap 6.7 mEq/L (5.0-15.0); Potassium 3.7 mEq/L (3.5-5.1)
--- NOTE | 2024-04-13 16:32 | EDPHYS ---
Physician Documentation [facility] Name: Kylah France Age: 28 yrs Sex: Female : 1995 Arrival Date: 04/13/2024 Time: 13:37 Bed 24 Private MD: ED Physician Amada Astorga HPI: 04/13 15:20 This 28 yrs old Female presents to ER via Ambulatory with complaints of 10 weeks sp3 . 15:20 28-year-old female 10 weeks by LMP presents to the ED for "second opinion" for sp3 her current situation. Patient denies any bleeding or abdominal pain. 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 Patient's last hCG 2 weeks ago was 10,800 and she has an ultrasound with activity and a pole. Yesterday patient saw the same HOOP MAKER and was told that she had possible miscarriage versus molar . Patient presents today for second opinion and reevaluation. She denies any other somatic symptoms and review of systems is otherwise negative.. 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 - Infectious Disease History:: Denies. - Social history:: Smoking status: Patient denies any tobacco usage or history of. ROS: 15:21 Constitutional: Negative for fever, chills, and weight loss, Eyes: Negative for injury, sp3 pain, redness, and discharge, ENT: Negative for injury, pain, and discharge, Neck: Negative for injury, pain, and swelling, Cardiovascular: Negative for chest pain, palpitations, and edema, Respiratory: Negative for shortness of breath, cough, wheezing, and pleuritic chest pain, Abdomen/GI: Negative for abdominal pain, nausea, vomiting, diarrhea, and constipation, MS/Extremity: Negative for injury and deformity, Skin: Negative for injury, rash, and discoloration, Neuro: Negative for headache, weakness, numbness, tingling, and seizure, Psych: Negative for depression, anxiety, suicide ideation, homicidal ideation, and hallucinations, Allergy/Immunology: Negative for hives, rash, and allergies, Endocrine: Negative for neck swelling, polydipsia, polyuria, polyphagia, and marked weight changes, Hematologic/Lymphatic: Negative for swollen nodes, abnormal bleeding, and unusual bruising, 15:21 All other systems are negative, Exam: 15:22 Constitutional: This is a well developed, well nourished patient who is awake, alert, sp3 and in no acute distress. Head/Face: Normocephalic, atraumatic. Eyes: Pupils equal round and reactive to light, extra-ocular motions intact. Lids and lashes normal. Conjunctiva and sclera are non-icteric and not injected. Cornea within normal limits. Periorbital areas with no swelling, redness, or edema. Neck: Trachea midline, no thyromegaly or masses palpated, and no cervical lymphadenopathy. Supple, full range of motion without nuchal rigidity, or vertebral point tenderness. No Meningismus. Chest/axilla: Normal chest wall appearance and motion. Nontender with no deformity. No lesions are appreciated. Cardiovascular: Regular rate and rhythm with a normal S1 and S2. No gallops, murmurs, or rubs. Normal PMI, no JVD. No pulse deficits. Respiratory: Lungs have equal breath sounds bilaterally, clear to auscultation and percussion. No rales, rhonchi or wheezes noted. No increased work of breathing, no retractions or nasal flaring. Abdomen/GI: Soft, non-tender, with normal bowel sounds. No distension or tympany. No guarding or rebound. No evidence of tenderness throughout. Skin: Warm, dry with normal turgor. Normal color with no rashes, no lesions, and no evidence of cellulitis. MS/ Extremity: Pulses equal, no cyanosis. Neurovascular intact. Full, normal range of motion. Neuro: Awake and alert, GCS 15, oriented to person, place, time, and situation. Cranial nerves II-XII grossly intact. Motor strength 5/5 in all extremities. Sensory grossly intact. Cerebellar exam normal. Normal gait. Psych: Awake, alert, with orientation to person, place and time. Behavior, mood, and affect are within normal limits. Vital Signs: 13:46 BP 114 / 71; Pulse 83; Resp 18; Temp 98.5(O); Pulse Ox 100% on R/A; Weight 56.25 kg; db Height 5 ft. 1 in. ; 13:46 Body Mass Index 23.43 (56.25 kg, 154.94 cm) db MDM: 13:50 Patient medically screened. sp3 15:22 Data reviewed: vital signs, nurses notes, lab test result(s), radiologic studies. ED sp3 course: 28-year-old female with concerns of possible molar versus miscarriage who is 10 weeks by LMP now with concerns of incorrect diagnosis. Ultrasound demonstrates gestational sac consistent with 5 weeks. Small subchorionic bleed also noted. All blood work pending including quantitative hCG.. 16:31 ED course: hCG at 2600 and given ultrasound results I believe this is a blighted sp3 ovum/miscarriage. I have urged patient to seek obstructive care for D\\T\\C. They state they have an appointment at [facility] and they will call them for an earlier appointment time.. 16:43 ED course: ABO Rh is a negative. RhoGAM will be given given subchorionic bleed.. 3 04/13 13:55 Order name: Abo/rh Typing [facility] 04/13 17:21 Order name: Rh Typing [facility] 04/13 17:21 Order name: Antibody Screen [facility] 04/13 17:21 Order name: Fetalscreen [facility] 04/13 17:21 Order name: Cord Rh type [facility] 04/13 13:55 Order name: Basic Metabolic Panel; Complete Time: 16:21 sp3 04/13 13:55 Order name: CBC with Diff; Complete Time: 16:21 3 04/13 13:55 Order name: Quantitative Hcg; Complete Time: 16:21 3 04/13 17:21 Order name: Rhogam [facility] 04/13 13:55 Order name: US Transvaginal Ob; Complete Time: 15:05 sp3 04/13 13:55 Order name: IV Saline Lock; Complete Time: 15:32 sp3 04/13 13:55 Order name: Labs collected and sent; Complete Time: 15:32 sp3 04/13 13:55 Order name: NPO; Complete Time: 15:32 sp3 Administered Medications: 18:29 Drug: Rho D Immune Globulin IM 300 mcg IM once Route: IM; Site: left ventrogluteal; iw 18:45 Follow up: Response: No adverse reaction iw Disposition Summary: 04/13/24 16:32 Discharge Ordered Notes: Location: Home sp3 Condition: Stable sp3 Diagnosis - Blighted ovum, miscarriage sp3 Followup: sp3 - With: Private Physician - When: Upon discharge from the Emergency Department - Reason: Continuance of care Discharge Instructions: - Discharge Summary Sheet sp3 - Incomplete Miscarriage sp3 Forms: - Medication Reconciliation Form sp3 - Antibiotic Education sp3 - Prescription Opioid Use sp3 - Patient Portal Instructions sp3 - Leadership Thank You Letter sp3 Signatures: Dispatcher [employer] EDMS Juana Franco RN RN iw Amada Astorga MD MD sp3 Maryjo Egan RN RN db Corrections: (The following items were deleted from the chart) 13:56 13:56 Transvaginal Ob+US.RAD.BRZ ordered. EDMS EDMS
--- NOTE | 2024-04-13 16:32 | ER ---
Nurse's Notes [facility] Name: Kylah France Age: 28 yrs Sex: Female : 1995 Arrival Date: 04/13/2024 Time: 13:37 Bed 24 Private MD: Diagnosis: Blighted ovum, miscarriage Presentation: 04/13 13:46 Chief complaint: Patient states: STATES WANTS TO HAVE A REPEAT ULTRASOUND BECAUSE WAS db TOLD HAD A MOLAR AT 10 WEEKS. STATES HAD AN ULTRASOUND PREVIOUSLY AND SAW A BABY. DENIES VAGINAL BLEEDING NOW. Coronavirus screen: Client denies travel out of the [place] in the last 14 days. At this time, the client does not indicate any symptoms associated with coronavirus-19. Ebola Screen: Patient negative for fever greater than or equal to 101.5 degrees Fahrenheit, and additional compatible Ebola Virus Disease symptoms Patient denies exposure to infectious person. Patient denies travel to an Ebola-affected area in the 21 days before illness onset. No symptoms or risks identified at this time. Initial Sepsis Screen: Does the patient meet any 2 criteria? No. Patient's initial sepsis screen is negative. Does the patient have a suspected source of infection? No. Patient's initial sepsis screen is negative. Risk Assessment: Do you want to hurt yourself or someone else? Patient reports no desire to harm self or others. Onset of symptoms was April 13, 2024. 13:46 Method Of Arrival: Ambulatory db 13:46 Acuity: NIDA 3 db Triage Assessment: 13:50 General: Appears in no apparent distress. comfortable, Behavior is calm, cooperative. db Pain: Complains of pain in abdomen. Neuro: Level of Consciousness is awake, alert, obeys commands, Oriented to person, place, time. Respiratory: Airway is patent Respiratory effort is even, unlabored, Respiratory pattern is regular, symmetrical. 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 - Infectious Disease History:: Denies. - Social history:: Smoking status: Patient denies any tobacco usage or history of. Screenin:[facility] ED Fall Risk Assessment (Adult) History of falling in the last 3 months, iw including since admission No falls in past 3 months (0 pts) Confusion or Disorientation No (0 pts) Intoxicated or Sedated No (0 pts) Impaired Gait No (0 pts) Mobility Assist Device Used No (0 pt) Altered Elimination No (0 pt) Score/Fall Risk Level 0 - 2 = Low Risk Oriented to surroundings, Maintained a safe environment. Abuse screen: Denies threats or abuse. Denies injuries from another. Nutritional screening: No deficits noted. Tuberculosis screening: No symptoms or risk factors identified. Assessment: 16:00 General: Appears in no apparent distress. comfortable, Behavior is calm, cooperative. iw Pain: Denies pain. Neuro: Level of Consciousness is awake, alert, obeys commands, Oriented to person, place, time, situation, Electrician'S Helper are equal bilaterally Moves all extremities. Full function. Cardiovascular: Patient's skin is warm and dry. Respiratory: Respiratory effort is even, unlabored, Respiratory pattern is regular, symmetrical. GI: Abdomen is non-distended. : Denies vaginal bleeding. Derm: Skin is intact, is healthy with good turgor. 18:00 Reassessment: tech en route to lab for rhogam injection. iw Vital Signs: 13:46 BP 114 / 71; Pulse 83; Resp 18; Temp 98.5(O); Pulse Ox 100% on R/A; Weight 56.25 kg; db Height 5 ft. 1 in. ; 13:46 Body Mass Index 23.43 (56.25 kg, 154.94 cm) db ED Course: 13:39 Patient arrived in ED. im 13:49 Amada Astorga MD is Attending Physician. sp3 13:50 Triage completed. db 13:50 Arm band placed on. db 14:33 US Transvaginal Ob In Process Unspecified. EDMS 15:21 Juana Franco, RN is Primary Nurse. iw 15:30 Initial lab(s) drawn, by me, sent to lab. Inserted saline lock: 22 gauge in right iw antecubital area, using aseptic technique. 18:02 Patient has correct armband on for positive identification. Provided Education on: need iw for RhoGAM . 18:33 No provider procedures requiring assistance completed. IV discontinued, intact, iw bleeding controlled, No redness/swelling at site. Pressure dressing applied. Administered Medications: 18:29 Drug: Rho D Immune Globulin IM 300 mcg IM once Route: IM; Site: left ventrogluteal; iw 18:45 Follow up: Response: No adverse reaction iw Medication: 18:01 VIS not applicable for this client. iw Outcome: 16:32 Discharge ordered by MD. ferrara 18:33 Patient left the ED. iw 18:33 Discharged to home ambulatory, iw 18:33 Condition: good 18:33 Discharge instructions given to patient, Instructed on discharge instructions, follow up and referral plans. Demonstrated understanding of instructions, follow-up care, Signatures: Dispatcher [employer] Juana Ritchie, RN YOGI iw Amada Astorga MD MD sp3 Maryjo Egan RN YOGI db Acacia Cruz im
[2024-04-13 19:28] VITALS: BP 114/71; TEMP 98.5; O2SAT 100
== END 2024-04-13 18:33 | disposition home or self-care (01) ==
LOC: ER 13:37
DX: O03.9 Complete or unspecified spontaneous abortion without complication (principal); O02.0 Blighted ovum and nonhydatidiform mole
CPT/HCPCS: 85025; 80048; 36415; 86900; 86850; 86901 ×2; 84702; 76817; 96372; 99284; J2790